=== PATIENT | female | born 1955 | race Caucasian/White ===

== ENCOUNTER → 2017-10-01 | Outpatient (REF) | payer OTHER, SELFPAY | LOC: LAB 11:37 | PROVIDERS: Family Provider Family Medicine | DX: Z13.1 Encounter for screening for diabetes mellitus (principal); Z13.220 Encounter for screening for lipoid disorders; Z71.89 Other specified counseling | CPT/HCPCS: 80061; 82947 ==

== ENCOUNTER → 2018-02-26 07:48 | Outpatient (CLI) | payer OTHER, SELFPAY ==
--- NOTE | 2018-02-26 | DI.MG.S_ITS ---
BILATERAL DIGITAL SCREENING MAMMOGRAM 3D/2D WITH CAD: 02/26/2018 CLINICAL: Routine screening. Comparison is made to exams dated: 01/11/2017 mammogram, 09/21/2015 mammogram - [facility], and 05/28/2013 mammogram - [facility]. There are scattered fibroglandular elements in both breasts. Current study was also evaluated with a Computer Aided Detection (CAD) system. There is an asymmetry in the right breast anterior depth central to the nipple seen on the mediolateral oblique view only with possible architectural distortion associated with the asymmetry. No other significant masses, calcifications, or other findings are seen in either breast. IMPRESSION: INCOMPLETE: NEEDS ADDITIONAL IMAGING EVALUATION The asymmetry with possible architectural distortion in the right breast is indeterminate. Additional views with possible ultrasound are recommended. This exam was interpreted at Station ID: [id number]. NOTE: For mammograms, a report in lay terms will be sent to the patient. Approximately 15% of breast malignancies will not be visualized mammographically. In the management of a palpable breast mass, a negative mammogram must not discourage biopsy of a clinically suspicious lesion. Electronically Signed By: Brian Honeycutt M.D. ecl/:02/27/2018 00:29:55 copy to: Ania Aranda letter sent: Additional Imaging Needed ACR BI-RADS Category 0: Incomplete [id number]
== END ==
PROVIDERS: Family Provider Family Medicine; Visit Provider Family Medicine
DX: Z12.31 Encounter for screening mammogram for malignant neoplasm of breast (principal)
CPT/HCPCS: 77063; 77067

== ENCOUNTER → 2018-03-20 13:59 | Outpatient (CLI) | payer OTHER, SELFPAY ==
--- NOTE | 2018-03-20 14:00 | DI.MG.S_ITS ---
UNILATERAL RIGHT DIGITAL DIAGNOSTIC MAMMOGRAM 3D/2D WITH ADDITIONAL VIEWS: 03/20/2018 CLINICAL: Additional evaluation requested from prior study. Comparison is made to exams dated: 02/26/2018 mammogram, 01/11/2017 mammogram, 09/21/2015 mammogram - [facility], and 05/28/2013 mammogram - [facility]. There are scattered fibroglandular elements in right breast. There is a benign irregular equal density asymmetry with an indistinct margin in the right breast anterior depth central to the nipple seen on the mediolateral oblique view only. This is not significantly changed compared to the prior studies dating back to 2012. No other significant masses or calcifications are seen in the breast. IMPRESSION: There is no mammographic evidence of malignancy. A 1 year screening mammogram is recommended.(03/21/2019) This exam was interpreted at Station ID: [id number]. NOTE: For mammograms, a report in lay terms will be sent to the patient. Approximately 15% of breast malignancies will not be visualized mammographically. In the management of a palpable breast mass, a negative mammogram must not discourage biopsy of a clinically suspicious lesion. Electronically Signed By: Tarik Ratliff M.D. ddjohn/:03/20/2018 14:40:09 copy to: Ania Aranda letter sent: Normal Exam ACR BI-RADS Category 2: Benign Finding(s) [id number]
== END ==
PROVIDERS: Family Provider Naturopath; PCP Family Medicine; Visit Provider Family Medicine
DX: R92.8 Other abnormal and inconclusive findings on diagnostic imaging of breast (principal)
CPT/HCPCS: 77065; G0279

== ENCOUNTER 2018-10-23 08:15 | Outpatient (RCR) | payer OTHER, SELFPAY ==
--- NOTE | 2018-08-20 17:30 | PT.OIE ---
Current Diagnoses Pain in left hip (08/20/18) Past Medical History (Last Updated 06/10/18 @ 15:05 by [place]) Ankle pain (Chronic 2016) Anxiety (Chronic 2007) Chronic headaches (Chronic 1989) Depression (Chronic 2007) Foot pain (Chronic 2012) GERD (gastroesophageal reflux disease) (Chronic 2006) Hayfever (Chronic 1989) Osteoarthritis (Chronic 2009) Osteopenia (Chronic 2016) Shoulder pain (Chronic 2004) Abnormal Pap smear of cervix (Resolved 2004) Colon polyps (Resolved 01/01/18) Fractures (Resolved 1974) History of heavy periods (Resolved 1969) Irregular periods/menstrual cycles (Resolved 1994) Measles (Resolved 1959) Mumps (Resolved 1959) Ovarian cyst (Resolved 1994) Plantar warts (Resolved 2009) Past Surgical History (Last Updated 06/10/18 @ 15:04 by [place]) Anesthesia (Resolved) History of colonoscopy with polypectomy (Resolved 01/01/18) History of ovarian cystectomy (Resolved 1994) History of tonsillectomy (Resolved 1974) Status post rotator cuff repair (Resolved 07/2016) Provider Visit Care Team Role Provider Type Bridgett Chaparro DO Family Provider Physician Primary Care Provider Specialty: Family Practice Address: [address] [place] [address] Email: [email or web address] [email or web address] Rodriguez Attending Provider Advanced Distance Learning Coordinator Specialty: Medical Address: [address] [place] [address] Email: Physical Therapy Initial Evaluation PT-OP-A Visit Information Start: 08/20/18 08:11 Freq: Status: Active Protocol: Document 08/20/18 08:57 EA (Rec: 08/20/18 09:56 EA [id number]) Out-Patient Physical Therapy Visit Information Visit Information Visit Type Initial Evaluation Visit Start Time 07:30 Visit Stop Time 08:10 Total Visit Minutes 40 Visit Number 1 Number of STRUCTURES TECHNICIAN Visits 0 Evaluation Information Evaluation Date 08/20/18 PT-OP-B Current Condition Start: 08/20/18 08:11 Freq: Status: Active Protocol: Document 08/20/18 08:57 EA (Rec: 08/20/18 09:56 EA [id number]) Current Condition History of Current Condition Onset Date Mid May 2018 Current Complaints gait difficulty due to localized left hip pain History of Current Condition Patient reports present condition started on mid- May with no known injury or significant past medical history; states it starts gradually from shifting of cycling exercises daily to walking 3 miles per day. Patient went to her physician due to decreasing mobility as pain tends to increased with increasing distance. Patient received pain meds and home stretch that helps a bit only. Patient denies any loss of function and abnormal sensation. Patient denies any diagnostic imaging performed in the past months. Prior Treatments and Tests None identified Future Testing and Treatments Planned None identified Treatment Goals Patient/Caregiver Goals Patient wants to eliminate pain completely so she can go back to her PLOF (active lifestyle) Prior Functional Status Baseline Function- ADL's Independent Baseline Function- Mobility Independent Baseline Function- Gait Indep with no limitation Baseline Function- Work/School retired Baseline Function- Recreation/Hobbies Cycling exercises 5 times per week or walking more than 2 miles daily. Current Functional Impairments (Reported) Functional Limitations- ADL's Independent Functional Limitations- Mobility/Gait Unable to walk more than a mile due to increasing pain Functional Limitations- Work/School retired Functional Limitations- Recreation/ Unable to perform cycling and Hobbies distance walking due to increasing pain with increasing distance. PT-OP-C Subjective Start: 08/20/18 08:11 Freq: Status: Active Protocol: Document 08/20/18 08:57 EA (Rec: 08/20/18 09:56 EA [id number]) OP-PT Subjective Patient Comments Patient Comments Patient reports she would like to get back to walking routine when the Weather permits. She states that left hip pain decreased her mobility; states pain increased more with increasing distance. Patient Questionnaires Lower Extremity Functional Scale LEFS Score 46 LEFS Impairment 40 to 59% Impaired (Score 32- 47) OP-PT Pain Assessment Pain Assessment Grid Paper Pain Assessment Grid Completed Yes Location Left Lateral Buttock Pain Location Details upper gluteals, hip ERotators, greater trochanter Intensity 5 Scale Used Numeric (1 - 10) Description Tender Tightness With Movement Frequency Intermittent Pain Aggravating Factors ADL's Activity Exercise Standing Walking Stair Climbing Pain Alleviating Factors Heat Rest Home Pain Medication Use Pain Medications Used No Pain Behaviors Pain Behaviors Wincing PT-OP-F Manual Assessment Start: 08/20/18 08:11 Freq: Status: Active Protocol: Document 08/20/18 08:57 EA (Rec: 08/20/18 09:56 EA [id number]) Manual Assessments Soft Tissue Assessment Soft Tissue Mobility Assessment Tight left hip ERotators Joint Mobility Assessment Joint Mobility Assessment Normal joint mob PT-OP-G Mobility & Gait Start: 08/20/18 08:11 Freq: Status: Active Protocol: Document 08/20/18 08:57 EA (Rec: 08/20/18 09:56 EA [id number]) OP Gait Assessment Gait Gait Assistance Required: Independent Able to Maintain Weight Bearing Status Yes During Gait Assistive Devices Assistive Device None Factors Limiting Gait Function Factors Limiting Gait Function Pain Comments Gait Comments Incresead left lateral pelvic displacement PT-OP-J Posture/Palpation/Skin Start: 08/20/18 08:11 Freq: Status: Active Protocol: Document 08/20/18 08:57 EA (Rec: 08/20/18 09:56 EA [id number]) Posture Evaluation Position Standing Evaluation View Post/Lat Head/C-Spine Posture Neutral Position T-Spine Posture Neutral Thorax Posture Neutral L-Spine Posture Neutral Shoulder Posture Neutral Pelvis Posture Neutral (L) Iliac Crest Inferior (L) ASIS Inferior Hip Posture (L) Externally Rotated Comments Posture Comments Left LE shorter than right by 2 cm Palpation Assessment Location One Palpation Location Left upper gluteal, hip Erotators, greater trochanter. Palpation Findings Soft Tissue Tightness Tenderness Palpation Details Grade 2/4 tenderness PT-OP-K Range of Motion Start: 08/20/18 08:11 Freq: Status: Active Protocol: Document 08/20/18 09:56 EA (Rec: 08/20/18 09:58 EA [id number]) Hip Goniometric Range of Motion Hip Measured in Degrees Right Hip ROM WFL Yes Left Active Flexion w/Knee Flexed 145 Extension 30 Abduction 45 Internal Rotation 15 External Rotation 30 Hip ROM Limitations Hip ROM Limitations Soft Tissue Tightness Pain Knee Goniometric Range of Motion Knee Measured in Degrees Left Knee ROM WFL Yes PT-OP-L Special Tests Start: 08/20/18 08:11 Freq: Status: Active Protocol: Document 08/20/18 08:57 EA (Rec: 08/20/18 09:56 EA [id number]) Special Tests Hip Special Tests Musa Test Results - Piriformis Test Results sensitive OUSMANE Test Results - Trendelenberg Test Results - Straight Leg Raise Test Results - Cate's Test Test Results - Knee Special Tests Nat's Test Test Results - PT-OP-M Strength Start: 08/20/18 08:11 Freq: Status: Active Protocol: Document 08/20/18 08:57 EA (Rec: 08/20/18 09:56 EA [id number]) Hip Strength Hip Manual Muscle Testing Left Flexion (L2) 5 Normal Extension (S1) 4+ Good+ Abduction 5 Normal Adduction 4+ Good+ External Rotation 4- Good- Internal Rotation 3+ Fair+ Knee Strength Knee Manual Muscle Testing Left Reason Not Measured WFL Ankle/Foot Strength Ankle and Foot Manual Muscle Testing Left Reason Not Measured WFL PT-OP-Q Treatments Start: 08/20/18 08:11 Freq: Status: Active Protocol: Document 08/20/18 08:57 EA (Rec: 08/20/18 09:56 EA [id number]) Therapeutic Exercises Sitting Exercises 2 Sitting Exercise Name Hip Irotation Resistance Lv1 Reps/Minutes x 12 reps Comments stabilize knee 1 Sitting Exercise Name HIP external rot Side left Resistance BTB/Lv1 Reps/Minutes x 12 reps Self-Care/Home Management Treatment Education Patient Education Home Exercise Program Joint Protection Pain Management Posture Caregiver Education Educated with home exercises and pain management PT-OP-T Assessment and Plan Start: 08/20/18 08:11 Freq: Status: Active Protocol: Document 08/20/18 08:11 EA (Rec: 08/20/18 08:14 EA [id number]) Physical Therapy Assessment Rehab Potential Rehabilitation Potential Good Evaluation Complexity Number of Personal Factors/Comorbidities 0 Number of Body Systems Impaired 1-2 Clinical Presentation at Evaluation Stable Impairments Impairments Gait Pain Posture Soft Tissue Mobility Strength Goals Four Impairment Impaired walking tolerance [facility] Goal (LTG) Patient willl ambulaet > 2 miles per day without increase of symptoms LTG Duration 4 wks Three Impairment No HEP in place [facility] Goal (LTG) Patient will exhibit independent HEP LTG Duration 3 wks Two Impairment Impaired left hip strength Motion Study Technician Goal (LTG) Patient will increase left hip rotators by 1/2 to 1 grade for functional mobility. LTG Duration 5 wks One Impairment LEFS score of 46/80 [facility] Goal (LTG) Patient will have LEFS score of > 55/80 LTG Duration 4 wks Assessment Summary Assessment Pleasant 62 y/o F patient with a referring diagnosis of left hip pain. Today patient exhibits signs and symptoms consistent with left hip abductors/gluteal tendinitis vs bursitis. Special tests sensitive to piriformis test, negative with scouring, FABERS, and SI joint test. Gait analysis reveals increase left pelvic lateral displacement. Postural analysis reveals left leg 2 cm shorter than right in supine and level in long sitting. MMT reveals weakness to hip ER/IR with pain overpressure during ER. Palpation reveals grade 2/ 4 tender over left greater troc and upper and lateral gluteal region. Due to above dysfunction, patient unable to perform activities that was normally okay 2 months ago. In my professional opinion, patient would benefit with skilled PT to increase patient 's quality of life. Physical Therapy Plan Frequency and Duration Frequency of Treatment 2x/Week Duration of Treatment 8 wks Plan of Care Start Date 08/20/18 Plan of Care End Date 10/15/18 Therapeutic Interventions Therapeutic Interventions Gait Training Home Exercise Program Joint Mobilizations Manual Therapy Patient/Caregiver Education Self-Care/Home Management Soft Tissue Mobilization Taping Therapeutic Exercises Modalities Cold Pack/Ice Massage Electric Stimulation Hot Packs Ultrasound Next Visit Focus/Plan Next Note Type Treatment Note Next Visit Plan Review HEP, decrease pain with the use of manual and modalities.
--- NOTE | 2018-08-20 17:30 | PT.OPPOC ---
Current Diagnoses Pain in left hip (08/20/18) Provider Visit Care Team Role Provider Type Bridgett Chaparro DO Family Provider Physician Primary Care Provider Specialty: Family Practice Address: [address] [place] [address], [id number] Email: [email or web address] YAMIL Rodriguez Attending Provider Advanced Client Services Administrator Specialty: Medical Address: [address] [place] [address], [id number] Email: Plan Of Care PT-OP-T Assessment and Plan Start: 08/20/18 08:11 Freq: Status: Active Protocol: Document 08/20/18 08:11 KATHERINE (Rec: 08/20/18 08:14 KATHERINE [id number]) Physical Therapy Assessment Rehab Potential Rehabilitation Potential Good Evaluation Complexity Number of Personal Factors/Comorbidities 0 Number of Body Systems Impaired 1-2 Clinical Presentation at Evaluation Stable Impairments Impairments Gait Pain Posture Soft Tissue Mobility Strength Goals Four Impairment Impaired walking tolerance Snf Goal (LTG) Patient willl ambulaet > 2 miles per day without increase of symptoms LTG Duration 4 wks Three Impairment No HEP in place [facility]roglazer Goal (LTG) Patient will exhibit independent HEP LTG Duration 3 wks Two Impairment Impaired left hip strength Snf Goal (LTG) Patient will increase left hip rotators by 1/2 to 1 grade for functional mobility. LTG Duration 5 wks One Impairment LEFS score of 46/80 Snf Goal (LTG) Patient will have LEFS score of > 55/80 LTG Duration 4 wks Assessment Summary Assessment Pleasant 62 y/o F patient with a referring diagnosis of left hip pain. Today patient exhibits signs and symptoms consistent with left hip abductors/gluteal tendinitis vs bursitis. Special tests sensitive to piriformis test, negative with scouring, FABERS, and SI joint test. Gait analysis reveals increase left pelvic lateral displacement. Postural analysis reveals left leg 2 cm shorter than right in supine and level in long sitting. MMT reveals weakness to hip ER/IR with pain overpressure during ER. Palpation reveals grade 2/ 4 tender over left greater troc and upper and lateral gluteal region. Due to above dysfunction, patient unable to perform activities that was normally okay 2 months ago. In my professional opinion, patient would benefit with skilled PT to increase patient 's quality of life. Physical Therapy Plan Frequency and Duration Frequency of Treatment 2x/Week Duration of Treatment 8 wks Plan of Care Start Date 08/20/18 Plan of Care End Date 10/15/18 Therapeutic Interventions Therapeutic Interventions Gait Training Home Exercise Program Joint Mobilizations Manual Therapy Patient/Caregiver Education Self-Care/Home Management Soft Tissue Mobilization Taping Therapeutic Exercises Modalities Cold Pack/Ice Massage Electric Stimulation Hot Packs Ultrasound Next Visit Focus/Plan Next Note Type Treatment Note Next Visit Plan Review HEP, decrease pain with the use of manual and modalities. Plan of Care Dates Plan of Care Start Date 08/20/18 Plan of Care End Date 10/15/18 Please Sign and Return: I have reviewed this Plan of Care and certify that the skilled therapy services above are required to meet the patient?s needs. Physician Signature Date Printed Name and Credentials Clinical Instructor Signature Printed Name and Credentials
--- NOTE | 2018-08-25 13:31 | PT.OTN ---
Current Diagnoses Pain in left hip (08/25/18) Physical Therapy Treatment Note PT-OP-A Visit Information Start: 08/20/18 08:11 Freq: Status: Active Protocol: Document 08/25/18 12:47 EA (Rec: 08/25/18 12:56 EA [id number]) Out-Patient Physical Therapy Visit Information Visit Information Visit Type Treatment Note Visit Start Time 12:15 Visit Stop Time 13:02 Total Visit Minutes 47 Visit Number 2 Number of MACHINE II TRIMMER Visits 0 PT-OP-B Current Condition Start: 08/20/18 08:11 Freq: Status: Active Protocol: Document 08/20/18 08:57 EA (Rec: 08/20/18 09:56 EA [id number]) Current Condition History of Current Condition Onset Date Mid May 2018 Current Complaints gait difficulty due to localized left hip pain History of Current Condition Patient reports present condition started on mid- May with no known injury or significant past medical history; states it starts gradually from shifting of cycling exercises daily to walking 3 miles per day. Patient went to her physician due to decreasing mobility as pain tends to increased with increasing distance. Patient received pain meds and home stretch that helps a bit only. Patient denies any loss of function and abnormal sensation. Patient denies any diagnostic imaging performed in the past months. Prior Treatments and Tests None identified Future Testing and Treatments Planned None identified Treatment Goals Patient/Caregiver Goals Patient wants to eliminate pain completely so she can go back to her PLOF (active lifestyle) Prior Functional Status Baseline Function- ADL's Independent Baseline Function- Mobility Independent Baseline Function- Gait Indep with no limitation Baseline Function- Work/School retired Baseline Function- Recreation/Hobbies Cycling exercises 5 times per week or walking more than 2 miles daily. Current Functional Impairments (Reported) Functional Limitations- ADL's Independent Functional Limitations- Mobility/Gait Unable to walk more than a mile due to increasing pain Functional Limitations- Work/School retired Functional Limitations- Recreation/ Unable to perform cycling and Hobbies distance walking due to increasing pain with increasing distance. PT-OP-C Subjective Start: 08/20/18 08:11 Freq: Status: Active Protocol: Document 08/25/18 12:47 EA (Rec: 08/25/18 12:56 EA [id number]) OP-PT Subjective Patient Comments Patient Comments Pt reports compliant with HEP and has been using heat and tennis ball to affected area. Patient Reported Progress Improving PT-OP-F Manual Assessment Start: 08/20/18 08:11 Freq: Status: Active Protocol: Document 08/20/18 08:57 EA (Rec: 08/20/18 09:56 EA [id number]) Manual Assessments Soft Tissue Assessment Soft Tissue Mobility Assessment Tight left hip ERotators Joint Mobility Assessment Joint Mobility Assessment Normal joint mob PT-OP-G Mobility & Gait Start: 08/20/18 08:11 Freq: Status: Active Protocol: Document 08/20/18 08:57 EA (Rec: 08/20/18 09:56 EA [id number]) OP Gait Assessment Gait Gait Assistance Required: Independent Able to Maintain Weight Bearing Status Yes During Gait Assistive Devices Assistive Device None Factors Limiting Gait Function Factors Limiting Gait Function Pain Comments Gait Comments Incresead left lateral pelvic displacement PT-OP-J Posture/Palpation/Skin Start: 08/20/18 08:11 Freq: Status: Active Protocol: Document 08/20/18 08:57 EA (Rec: 08/20/18 09:56 EA [id number]) Posture Evaluation Position Standing Evaluation View Post/Lat Head/C-Spine Posture Neutral Position T-Spine Posture Neutral Thorax Posture Neutral L-Spine Posture Neutral Shoulder Posture Neutral Pelvis Posture Neutral (L) Iliac Crest Inferior (L) ASIS Inferior Hip Posture (L) Externally Rotated Comments Posture Comments Left LE shorter than right by 2 cm Palpation Assessment Location One Palpation Location Left upper gluteal, hip Erotators, greater trochanter. Palpation Findings Soft Tissue Tightness Tenderness Palpation Details Grade 2/4 tenderness PT-OP-K Range of Motion Start: 08/20/18 08:11 Freq: Status: Active Protocol: Document 08/20/18 09:56 EA (Rec: 08/20/18 09:58 EA [id number]) Hip Goniometric Range of Motion Hip Measured in Degrees Right Hip ROM WFL Yes Left Active Flexion w/Knee Flexed 145 Extension 30 Abduction 45 Internal Rotation 15 External Rotation 30 Hip ROM Limitations Hip ROM Limitations Soft Tissue Tightness Pain Knee Goniometric Range of Motion Knee Measured in Degrees Left Knee ROM WFL Yes PT-OP-L Special Tests Start: 08/20/18 08:11 Freq: Status: Active Protocol: Document 08/20/18 08:57 EA (Rec: 08/20/18 09:56 EA [id number]) Special Tests Hip Special Tests Musa Test Results - Piriformis Test Results sensitive OUSMANE Test Results - Trendelenberg Test Results - Straight Leg Raise Test Results - Cate's Test Test Results - Knee Special Tests Nat's Test Test Results - PT-OP-M Strength Start: 08/20/18 08:11 Freq: Status: Active Protocol: Document 08/20/18 08:57 EA (Rec: 08/20/18 09:56 EA [id number]) Hip Strength Hip Manual Muscle Testing Left Flexion (L2) 5 Normal Extension (S1) 4+ Good+ Abduction 5 Normal Adduction 4+ Good+ External Rotation 4- Good- Internal Rotation 3+ Fair+ Knee Strength Knee Manual Muscle Testing Left Reason Not Measured WFL Ankle/Foot Strength Ankle and Foot Manual Muscle Testing Left Reason Not Measured WFL PT-OP-Q Treatments Start: 08/20/18 08:11 Freq: Status: Active Protocol: Document 08/25/18 12:47 EA (Rec: 08/25/18 12:56 EA [id number]) Cardio Equipment Recumbent Bicycle Duration (Minutes) 5 Resistance 6 Therapeutic Exercises Supine Exercises 1 Supine Exercise Name Figure of 4 stretch Reps/Minutes x 15SH x 2 Sitting Exercises 3 Sitting Exercise Name Piriformis stretch/cross leg stretch Reps/Minutes x 30SH x 2 2 Sitting Exercise Name Hip Irotation Resistance Lv1 Reps/Minutes x 12 reps x 2 Comments stabilize knee 1 Sitting Exercise Name HIP external rot Side left Resistance BTB/Lv1 Reps/Minutes x 12 reps x 2 Manual Therapy Treatment Soft Tissue Mobilization 1 Body Location Left upper/lower gluteals Mobilization Type Myofascial Release Sustained Pressure Trigger Point Release Intensity/Depth Moderate Body Position Sidelying Comments pillow inbet knees PT-OP-R Modalities Start: 08/20/18 08:11 Freq: Status: Active Protocol: Document 08/25/18 12:47 EA (Rec: 08/25/18 12:56 EA [id number]) Electric Stimulation Electric Stimulation Interferential Current (IFC) Body Location left gluteals/ ERotators Duration (Minutes) 15 Intensity 17 Patient Position Sidelying Combined With Heat/Cold Hot Pack PT-OP-T Assessment and Plan Start: 08/20/18 08:11 Freq: Status: Active Protocol: Document 08/25/18 12:47 EA (Rec: 08/25/18 12:56 EA [id number]) Physical Therapy Assessment Assessment Summary Assessment Tolerated treatment well. Tender spots still noted but decreased after manual PT. Physical Therapy Plan Next Visit Focus/Plan Next Note Type Treatment Note Next Visit Plan assess response to last treatment., otherwise progress as tolerated.
--- NOTE | 2018-09-01 09:31 | PT.OTN ---
Current Diagnoses Pain in left hip (08/25/18) Physical Therapy Treatment Note PT-OP-A Visit Information Start: 08/20/18 08:11 Freq: Status: Active Protocol: Document 09/01/18 08:56 EA (Rec: 09/01/18 09:01 EA [id number]) Out-Patient Physical Therapy Visit Information Visit Information Visit Type Treatment Note Visit Start Time 08:15 Visit Stop Time 09:00 Total Visit Minutes 53 Visit Number 3 Number of FIBER GLASS WORKER Visits 0 PT-OP-B Current Condition Start: 08/20/18 08:11 Freq: Status: Active Protocol: Document 08/20/18 08:57 EA (Rec: 08/20/18 09:56 EA [id number]) Current Condition History of Current Condition Onset Date Mid May 2018 Current Complaints gait difficulty due to localized left hip pain History of Current Condition Patient reports present condition started on mid- May with no known injury or significant past medical history; states it starts gradually from shifting of cycling exercises daily to walking 3 miles per day. Patient went to her physician due to decreasing mobility as pain tends to increased with increasing distance. Patient received pain meds and home stretch that helps a bit only. Patient denies any loss of function and abnormal sensation. Patient denies any diagnostic imaging performed in the past months. Prior Treatments and Tests None identified Future Testing and Treatments Planned None identified Treatment Goals Patient/Caregiver Goals Patient wants to eliminate pain completely so she can go back to her PLOF (active lifestyle) Prior Functional Status Baseline Function- ADL's Independent Baseline Function- Mobility Independent Baseline Function- Gait Indep with no limitation Baseline Function- Work/School retired Baseline Function- Recreation/Hobbies Cycling exercises 5 times per week or walking more than 2 miles daily. Current Functional Impairments (Reported) Functional Limitations- ADL's Independent Functional Limitations- Mobility/Gait Unable to walk more than a mile due to increasing pain Functional Limitations- Work/School retired Functional Limitations- Recreation/ Unable to perform cycling and Hobbies distance walking due to increasing pain with increasing distance. PT-OP-C Subjective Start: 08/20/18 08:11 Freq: Status: Active Protocol: Document 09/01/18 08:56 EA (Rec: 09/01/18 09:01 EA [id number]) OP-PT Subjective Patient Comments Patient Comments I feel my hip is feeling much better, states aching mostly happens when sleeping at night. PT-OP-F Manual Assessment Start: 08/20/18 08:11 Freq: Status: Active Protocol: Document 08/20/18 08:57 EA (Rec: 08/20/18 09:56 EA [id number]) Manual Assessments Soft Tissue Assessment Soft Tissue Mobility Assessment Tight left hip ERotators Joint Mobility Assessment Joint Mobility Assessment Normal joint mob PT-OP-G Mobility & Gait Start: 08/20/18 08:11 Freq: Status: Active Protocol: Document 08/20/18 08:57 EA (Rec: 08/20/18 09:56 EA [id number]) OP Gait Assessment Gait Gait Assistance Required: Independent Able to Maintain Weight Bearing Status Yes During Gait Assistive Devices Assistive Device None Factors Limiting Gait Function Factors Limiting Gait Function Pain Comments Gait Comments Incresead left lateral pelvic displacement PT-OP-J Posture/Palpation/Skin Start: 08/20/18 08:11 Freq: Status: Active Protocol: Document 08/20/18 08:57 EA (Rec: 08/20/18 09:56 EA [id number]) Posture Evaluation Position Standing Evaluation View Post/Lat Head/C-Spine Posture Neutral Position T-Spine Posture Neutral Thorax Posture Neutral L-Spine Posture Neutral Shoulder Posture Neutral Pelvis Posture Neutral (L) Iliac Crest Inferior (L) ASIS Inferior Hip Posture (L) Externally Rotated Comments Posture Comments Left LE shorter than right by 2 cm Palpation Assessment Location One Palpation Location Left upper gluteal, hip Erotators, greater trochanter. Palpation Findings Soft Tissue Tightness Tenderness Palpation Details Grade 2/4 tenderness PT-OP-K Range of Motion Start: 08/20/18 08:11 Freq: Status: Active Protocol: Document 08/20/18 09:56 EA (Rec: 08/20/18 09:58 EA [id number]) Hip Goniometric Range of Motion Hip Measured in Degrees Right Hip ROM WFL Yes Left Active Flexion w/Knee Flexed 145 Extension 30 Abduction 45 Internal Rotation 15 External Rotation 30 Hip ROM Limitations Hip ROM Limitations Soft Tissue Tightness Pain Knee Goniometric Range of Motion Knee Measured in Degrees Left Knee ROM WFL Yes PT-OP-L Special Tests Start: 08/20/18 08:11 Freq: Status: Active Protocol: Document 08/20/18 08:57 EA (Rec: 08/20/18 09:56 EA [id number]) Special Tests Hip Special Tests Musa Test Results - Piriformis Test Results sensitive OUSMANE Test Results - Trendelenberg Test Results - Straight Leg Raise Test Results - Cate's Test Test Results - Knee Special Tests Nat's Test Test Results - PT-OP-M Strength Start: 08/20/18 08:11 Freq: Status: Active Protocol: Document 08/20/18 08:57 EA (Rec: 08/20/18 09:56 EA [id number]) Hip Strength Hip Manual Muscle Testing Left Flexion (L2) 5 Normal Extension (S1) 4+ Good+ Abduction 5 Normal Adduction 4+ Good+ External Rotation 4- Good- Internal Rotation 3+ Fair+ Knee Strength Knee Manual Muscle Testing Left Reason Not Measured WFL Ankle/Foot Strength Ankle and Foot Manual Muscle Testing Left Reason Not Measured WFL PT-OP-Q Treatments Start: 08/20/18 08:11 Freq: Status: Active Protocol: Document 09/01/18 08:56 EA (Rec: 09/01/18 09:01 EA [id number]) Cardio Equipment Recumbent Stepper (Sci-Fit) Duration (Minutes) 7 Resistance 2 Therapeutic Exercises Supine Exercises 2 Supine Exercise Name Bridge Resistance YTB Reps/Minutes x 10 reps 1 Supine Exercise Name Figure of 4 stretch Reps/Minutes x 15SH x 2 Sitting Exercises 3 Sitting Exercise Name Piriformis stretch/cross leg stretch Reps/Minutes x 30SH x 2 2 Sitting Exercise Name Hip Irotation Resistance Lv1 Reps/Minutes x 12 reps x 2 Comments stabilize knee 1 Sitting Exercise Name HIP external rot Side left Resistance BTB/Lv1 Reps/Minutes x 12 reps x 2 Standing Exercises 2 Standing Exercise Name side step Resistance YTB Reps/Minutes x 12 feet x 4 lines 1 Standing Exercise Name Squat: ABDUctors activitation Reps/Minutes x 12 reps Manual Therapy Treatment Soft Tissue Mobilization 1 Body Location Left upper/lower gluteals Mobilization Type Myofascial Release Sustained Pressure Trigger Point Release Intensity/Depth Moderate Body Position Sidelying Comments pillow inbet knees PT-OP-R Modalities Start: 08/20/18 08:11 Freq: Status: Active Protocol: Document 09/01/18 08:56 EA (Rec: 09/01/18 09:01 EA [id number]) Electric Stimulation Electric Stimulation Interferential Current (IFC) Body Location left gluteals/ ERotators Duration (Minutes) 15 Intensity 17 Patient Position Sidelying Combined With Heat/Cold Hot Pack Ultrasound Therapy Treatment Left Hip Treatment Duration (minutes) 8 Patient Position Sidelying Frequency Setting (mHz) 1 Mode Setting Continuous Intensity Setting (w/cm2) 1.4 PT-OP-T Assessment and Plan Start: 08/20/18 08:11 Freq: Status: Active Protocol: Document 09/01/18 08:56 EA (Rec: 09/01/18 09:01 EA [id number]) Physical Therapy Assessment Assessment Summary Assessment Pt tolerated treatment with no discomfort during exercises noted. Physical Therapy Plan Next Visit Focus/Plan Next Note Type Treatment Note Next Visit Plan Cont. with current plan
--- NOTE | 2018-09-15 09:49 | PT.OTN ---
Current Diagnoses Pain in left hip (09/15/18) Physical Therapy Treatment Note PT-OP-A Visit Information Start: 08/20/18 08:11 Freq: Status: Active Protocol: Document 09/15/18 08:53 EA (Rec: 09/15/18 08:58 EA [id number]) Out-Patient Physical Therapy Visit Information Visit Information Visit Type Treatment Note Visit Start Time 08:15 Visit Stop Time 09:08 Total Visit Minutes 53 Visit Number 4 Number of BILL SORTER Visits 0 PT-OP-B Current Condition Start: 08/20/18 08:11 Freq: Status: Active Protocol: Document 08/20/18 08:57 EA (Rec: 08/20/18 09:56 EA [id number]) Current Condition History of Current Condition Onset Date Mid May 2018 Current Complaints gait difficulty due to localized left hip pain History of Current Condition Patient reports present condition started on mid- May with no known injury or significant past medical history; states it starts gradually from shifting of cycling exercises daily to walking 3 miles per day. Patient went to her physician due to decreasing mobility as pain tends to increased with increasing distance. Patient received pain meds and home stretch that helps a bit only. Patient denies any loss of function and abnormal sensation. Patient denies any diagnostic imaging performed in the past months. Prior Treatments and Tests None identified Future Testing and Treatments Planned None identified Treatment Goals Patient/Caregiver Goals Patient wants to eliminate pain completely so she can go back to her PLOF (active lifestyle) Prior Functional Status Baseline Function- ADL's Independent Baseline Function- Mobility Independent Baseline Function- Gait Indep with no limitation Baseline Function- Work/School retired Baseline Function- Recreation/Hobbies Cycling exercises 5 times per week or walking more than 2 miles daily. Current Functional Impairments (Reported) Functional Limitations- ADL's Independent Functional Limitations- Mobility/Gait Unable to walk more than a mile due to increasing pain Functional Limitations- Work/School retired Functional Limitations- Recreation/ Unable to perform cycling and Hobbies distance walking due to increasing pain with increasing distance. PT-OP-C Subjective Start: 08/20/18 08:11 Freq: Status: Active Protocol: Document 09/15/18 08:53 EA (Rec: 09/15/18 08:58 EA [id number]) OP-PT Subjective Patient Comments Patient Comments Pt reports she had a flu last week and had to cancelled last session; states left hip is improving but chio orellanapy her awake at time in the evening. PT-OP-F Manual Assessment Start: 08/20/18 08:11 Freq: Status: Active Protocol: Document 08/20/18 08:57 EA (Rec: 08/20/18 09:56 EA [id number]) Manual Assessments Soft Tissue Assessment Soft Tissue Mobility Assessment Tight left hip ERotators Joint Mobility Assessment Joint Mobility Assessment Normal joint mob PT-OP-G Mobility & Gait Start: 08/20/18 08:11 Freq: Status: Active Protocol: Document 08/20/18 08:57 EA (Rec: 08/20/18 09:56 EA [id number]) OP Gait Assessment Gait Gait Assistance Required: Independent Able to Maintain Weight Bearing Status Yes During Gait Assistive Devices Assistive Device None Factors Limiting Gait Function Factors Limiting Gait Function Pain Comments Gait Comments Incresead left lateral pelvic displacement PT-OP-J Posture/Palpation/Skin Start: 08/20/18 08:11 Freq: Status: Active Protocol: Document 08/20/18 08:57 EA (Rec: 08/20/18 09:56 EA [id number]) Posture Evaluation Position Standing Evaluation View Post/Lat Head/C-Spine Posture Neutral Position T-Spine Posture Neutral Thorax Posture Neutral L-Spine Posture Neutral Shoulder Posture Neutral Pelvis Posture Neutral (L) Iliac Crest Inferior (L) ASIS Inferior Hip Posture (L) Externally Rotated Comments Posture Comments Left LE shorter than right by 2 cm Palpation Assessment Location One Palpation Location Left upper gluteal, hip Erotators, greater trochanter. Palpation Findings Soft Tissue Tightness Tenderness Palpation Details Grade 2/4 tenderness PT-OP-K Range of Motion Start: 08/20/18 08:11 Freq: Status: Active Protocol: Document 08/20/18 09:56 EA (Rec: 08/20/18 09:58 EA [id number]) Hip Goniometric Range of Motion Hip Measured in Degrees Right Hip ROM WFL Yes Left Active Flexion w/Knee Flexed 145 Extension 30 Abduction 45 Internal Rotation 15 External Rotation 30 Hip ROM Limitations Hip ROM Limitations Soft Tissue Tightness Pain Knee Goniometric Range of Motion Knee Measured in Degrees Left Knee ROM WFL Yes PT-OP-L Special Tests Start: 08/20/18 08:11 Freq: Status: Active Protocol: Document 08/20/18 08:57 EA (Rec: 08/20/18 09:56 EA [id number]) Special Tests Hip Special Tests Musa Test Results - Piriformis Test Results sensitive OUSMANE Test Results - Trendelenberg Test Results - Straight Leg Raise Test Results - Cate's Test Test Results - Knee Special Tests Nat's Test Test Results - PT-OP-M Strength Start: 08/20/18 08:11 Freq: Status: Active Protocol: Document 08/20/18 08:57 EA (Rec: 08/20/18 09:56 EA [id number]) Hip Strength Hip Manual Muscle Testing Left Flexion (L2) 5 Normal Extension (S1) 4+ Good+ Abduction 5 Normal Adduction 4+ Good+ External Rotation 4- Good- Internal Rotation 3+ Fair+ Knee Strength Knee Manual Muscle Testing Left Reason Not Measured WFL Ankle/Foot Strength Ankle and Foot Manual Muscle Testing Left Reason Not Measured WFL PT-OP-Q Treatments Start: 08/20/18 08:11 Freq: Status: Active Protocol: Document 09/15/18 08:53 EA (Rec: 09/15/18 08:58 EA [id number]) Cardio Equipment Recumbent Stepper (Sci-Fit) Duration (Minutes) 7 Resistance 2 Therapeutic Exercises Supine Exercises 2 Supine Exercise Name Bridge w/ hip bilate abd Resistance BTB Reps/Minutes x 10 reps x 2 sets 1 Supine Exercise Name Figure of 4 stretch Reps/Minutes x 15SH x 2 Sitting Exercises 3 Sitting Exercise Name Piriformis stretch/cross leg stretch Reps/Minutes x 30SH x 2 2 Sitting Exercise Name Hip Irotation Resistance Lv1 Reps/Minutes x 12 reps x 2 Comments stabilize knee 1 Sitting Exercise Name HIP external rot Side left Resistance BTB/Lv1 Reps/Minutes x 12 reps x 2 Standing Exercises 2 Standing Exercise Name side step Resistance BTB Reps/Minutes x 12 feet x 4 lines 1 Standing Exercise Name Squat: ABDUctors activitation Reps/Minutes x 12 reps x 2 Manual Therapy Treatment Soft Tissue Mobilization 1 Body Location Left upper/lower gluteals Mobilization Type Myofascial Release Sustained Pressure Trigger Point Release Intensity/Depth Moderate Body Position Sidelying Comments pillow inbet knees PT-OP-R Modalities Start: 08/20/18 08:11 Freq: Status: Active Protocol: Document 09/15/18 08:53 EA (Rec: 09/15/18 08:58 EA [id number]) Electric Stimulation Electric Stimulation Interferential Current (IFC) Body Location left gluteals/ ERotators Duration (Minutes) 15 Intensity 17 Patient Position Sidelying Combined With Heat/Cold Hot Pack PT-OP-T Assessment and Plan Start: 08/20/18 08:11 Freq: Status: Active Protocol: Document 09/15/18 08:53 EA (Rec: 09/15/18 08:58 EA [id number]) Physical Therapy Assessment Assessment Summary Assessment Pt left hip is improving at this time. No discomfort noted during therex. Continue with current plan or progress as tolerated. Physical Therapy Plan Next Visit Focus/Plan Next Note Type Treatment Note Next Visit Plan Cont. with current plan. Progress as tolerated.
--- NOTE | 2018-09-17 09:49 | PT.OTN ---
Current Diagnoses Pain in left hip (09/17/18) Physical Therapy Treatment Note PT-OP-A Visit Information Start: 08/20/18 08:11 Freq: Status: Active Protocol: Document 09/17/18 09:04 EA (Rec: 09/17/18 09:07 EA [id number]) Out-Patient Physical Therapy Visit Information Visit Information Visit Type Treatment Note Visit Start Time 08:15 Visit Stop Time 09:08 Total Visit Minutes 53 Visit Number 5 Number of BIAS CUTTING MACHINE OPERATOR VERTICAL Visits 0 PT-OP-B Current Condition Start: 08/20/18 08:11 Freq: Status: Active Protocol: Document 08/20/18 08:57 EA (Rec: 08/20/18 09:56 EA [id number]) Current Condition History of Current Condition Onset Date Mid May 2018 Current Complaints gait difficulty due to localized left hip pain History of Current Condition Patient reports present condition started on mid- May with no known injury or significant past medical history; states it starts gradually from shifting of cycling exercises daily to walking 3 miles per day. Patient went to her physician due to decreasing mobility as pain tends to increased with increasing distance. Patient received pain meds and home stretch that helps a bit only. Patient denies any loss of function and abnormal sensation. Patient denies any diagnostic imaging performed in the past months. Prior Treatments and Tests None identified Future Testing and Treatments Planned None identified Treatment Goals Patient/Caregiver Goals Patient wants to eliminate pain completely so she can go back to her PLOF (active lifestyle) Prior Functional Status Baseline Function- ADL's Independent Baseline Function- Mobility Independent Baseline Function- Gait Indep with no limitation Baseline Function- Work/School retired Baseline Function- Recreation/Hobbies Cycling exercises 5 times per week or walking more than 2 miles daily. Current Functional Impairments (Reported) Functional Limitations- ADL's Independent Functional Limitations- Mobility/Gait Unable to walk more than a mile due to increasing pain Functional Limitations- Work/School retired Functional Limitations- Recreation/ Unable to perform cycling and Hobbies distance walking due to increasing pain with increasing distance. PT-OP-C Subjective Start: 08/20/18 08:11 Freq: Status: Active Protocol: Document 09/17/18 09:04 EA (Rec: 09/17/18 09:07 EA [id number]) OP-PT Subjective Patient Comments Patient Comments Pt reports left hip is improving well. PT-OP-F Manual Assessment Start: 08/20/18 08:11 Freq: Status: Active Protocol: Document 08/20/18 08:57 EA (Rec: 08/20/18 09:56 EA [id number]) Manual Assessments Soft Tissue Assessment Soft Tissue Mobility Assessment Tight left hip ERotators Joint Mobility Assessment Joint Mobility Assessment Normal joint mob PT-OP-G Mobility & Gait Start: 08/20/18 08:11 Freq: Status: Active Protocol: Document 08/20/18 08:57 EA (Rec: 08/20/18 09:56 EA [id number]) OP Gait Assessment Gait Gait Assistance Required: Independent Able to Maintain Weight Bearing Status Yes During Gait Assistive Devices Assistive Device None Factors Limiting Gait Function Factors Limiting Gait Function Pain Comments Gait Comments Incresead left lateral pelvic displacement PT-OP-J Posture/Palpation/Skin Start: 08/20/18 08:11 Freq: Status: Active Protocol: Document 08/20/18 08:57 EA (Rec: 08/20/18 09:56 EA [id number]) Posture Evaluation Position Standing Evaluation View Post/Lat Head/C-Spine Posture Neutral Position T-Spine Posture Neutral Thorax Posture Neutral L-Spine Posture Neutral Shoulder Posture Neutral Pelvis Posture Neutral (L) Iliac Crest Inferior (L) ASIS Inferior Hip Posture (L) Externally Rotated Comments Posture Comments Left LE shorter than right by 2 cm Palpation Assessment Location One Palpation Location Left upper gluteal, hip Erotators, greater trochanter. Palpation Findings Soft Tissue Tightness Tenderness Palpation Details Grade 2/4 tenderness PT-OP-K Range of Motion Start: 08/20/18 08:11 Freq: Status: Active Protocol: Document 08/20/18 09:56 EA (Rec: 08/20/18 09:58 EA [id number]) Hip Goniometric Range of Motion Hip Measured in Degrees Right Hip ROM WFL Yes Left Active Flexion w/Knee Flexed 145 Extension 30 Abduction 45 Internal Rotation 15 External Rotation 30 Hip ROM Limitations Hip ROM Limitations Soft Tissue Tightness Pain Knee Goniometric Range of Motion Knee Measured in Degrees Left Knee ROM WFL Yes PT-OP-L Special Tests Start: 08/20/18 08:11 Freq: Status: Active Protocol: Document 08/20/18 08:57 EA (Rec: 08/20/18 09:56 EA [id number]) Special Tests Hip Special Tests Musa Test Results - Piriformis Test Results sensitive OUSMANE Test Results - Trendelenberg Test Results - Straight Leg Raise Test Results - Cate's Test Test Results - Knee Special Tests Nat's Test Test Results - PT-OP-M Strength Start: 08/20/18 08:11 Freq: Status: Active Protocol: Document 08/20/18 08:57 EA (Rec: 08/20/18 09:56 EA [id number]) Hip Strength Hip Manual Muscle Testing Left Flexion (L2) 5 Normal Extension (S1) 4+ Good+ Abduction 5 Normal Adduction 4+ Good+ External Rotation 4- Good- Internal Rotation 3+ Fair+ Knee Strength Knee Manual Muscle Testing Left Reason Not Measured WFL Ankle/Foot Strength Ankle and Foot Manual Muscle Testing Left Reason Not Measured WFL PT-OP-Q Treatments Start: 08/20/18 08:11 Freq: Status: Active Protocol: Document 09/17/18 09:04 EA (Rec: 09/17/18 09:07 EA [id number]) Cardio Equipment Recumbent Stepper (Sci-Fit) Duration (Minutes) 7 Resistance 2 Gym Equipment Shuttle Recovery Bilateral Squats Resistance 3 cords Reps/Time 15 reps x 2 Therapeutic Exercises Supine Exercises 2 Supine Exercise Name Bridge w/ hip bilate abd Resistance BTB Reps/Minutes x 10 reps x 2 sets 1 Supine Exercise Name Figure of 4 stretch Reps/Minutes x 15SH x 2 Sitting Exercises 3 Sitting Exercise Name Piriformis stretch/cross leg stretch Reps/Minutes x 30SH x 2 2 Sitting Exercise Name Hip Irotation Resistance Lv1 Reps/Minutes x 12 reps x 2 Comments stabilize knee 1 Sitting Exercise Name HIP external rot Side left Resistance BTB/Lv1 Reps/Minutes x 12 reps x 2 Standing Exercises 2 Standing Exercise Name side step Resistance GTB Reps/Minutes x 12 feet x 4 lines 1 Standing Exercise Name Squat: ABDUctors activitation Reps/Minutes x 12 reps x 2 Manual Therapy Treatment Soft Tissue Mobilization 1 Body Location Left upper/lower gluteals Mobilization Type Myofascial Release Sustained Pressure Trigger Point Release Intensity/Depth Moderate Body Position Sidelying Comments pillow inbet knees PT-OP-R Modalities Start: 08/20/18 08:11 Freq: Status: Active Protocol: Document 09/17/18 09:04 EA (Rec: 09/17/18 09:07 EA [id number]) Electric Stimulation Electric Stimulation Interferential Current (IFC) Body Location left gluteals/ ERotators Duration (Minutes) 15 Intensity 17 Patient Position Sidelying Combined With Heat/Cold Hot Pack PT-OP-T Assessment and Plan Start: 08/20/18 08:11 Freq: Status: Active Protocol: Document 09/17/18 09:04 EA (Rec: 09/17/18 09:07 EA [id number]) Physical Therapy Assessment Assessment Summary Assessment Pt show god improvement as to mobility and symptoms; decrease session to once a week as able. Physical Therapy Plan Next Visit Focus/Plan Next Note Type Treatment Note Next Visit Plan Cont. with current plan. Progress as tolerated.
--- NOTE | 2018-09-22 11:07 | PT.OTN ---
Current Diagnoses Pain in left hip (09/22/18) Physical Therapy Treatment Note PT-OP-A Visit Information Start: 08/20/18 08:11 Freq: Status: Active Protocol: Document 09/22/18 09:01 EA (Rec: 09/22/18 09:06 EA [id number]) Out-Patient Physical Therapy Visit Information Visit Information Visit Type Treatment Note Visit Start Time 08:15 Visit Stop Time 09:09 Total Visit Minutes 4 Visit Number 6 Number of PLATE WORKER HELPER Visits 0 PT-OP-B Current Condition Start: 08/20/18 08:11 Freq: Status: Active Protocol: Document 08/20/18 08:57 EA (Rec: 08/20/18 09:56 EA [id number]) Current Condition History of Current Condition Onset Date Mid May 2018 Current Complaints gait difficulty due to localized left hip pain History of Current Condition Patient reports present condition started on mid- May with no known injury or significant past medical history; states it starts gradually from shifting of cycling exercises daily to walking 3 miles per day. Patient went to her physician due to decreasing mobility as pain tends to increased with increasing distance. Patient received pain meds and home stretch that helps a bit only. Patient denies any loss of function and abnormal sensation. Patient denies any diagnostic imaging performed in the past months. Prior Treatments and Tests None identified Future Testing and Treatments Planned None identified Treatment Goals Patient/Caregiver Goals Patient wants to eliminate pain completely so she can go back to her PLOF (active lifestyle) Prior Functional Status Baseline Function- ADL's Independent Baseline Function- Mobility Independent Baseline Function- Gait Indep with no limitation Baseline Function- Work/School retired Baseline Function- Recreation/Hobbies Cycling exercises 5 times per week or walking more than 2 miles daily. Current Functional Impairments (Reported) Functional Limitations- ADL's Independent Functional Limitations- Mobility/Gait Unable to walk more than a mile due to increasing pain Functional Limitations- Work/School retired Functional Limitations- Recreation/ Unable to perform cycling and Hobbies distance walking due to increasing pain with increasing distance. PT-OP-C Subjective Start: 08/20/18 08:11 Freq: Status: Active Protocol: Document 09/22/18 09:01 EA (Rec: 09/22/18 09:06 EA [id number]) OP-PT Subjective Patient Comments Patient Comments Pt reports left hip is quites sore today but improving as to functional activities. PT-OP-F Manual Assessment Start: 08/20/18 08:11 Freq: Status: Active Protocol: Document 08/20/18 08:57 EA (Rec: 08/20/18 09:56 EA [id number]) Manual Assessments Soft Tissue Assessment Soft Tissue Mobility Assessment Tight left hip ERotators Joint Mobility Assessment Joint Mobility Assessment Normal joint mob PT-OP-G Mobility & Gait Start: 08/20/18 08:11 Freq: Status: Active Protocol: Document 08/20/18 08:57 EA (Rec: 08/20/18 09:56 EA [id number]) OP Gait Assessment Gait Gait Assistance Required: Independent Able to Maintain Weight Bearing Status Yes During Gait Assistive Devices Assistive Device None Factors Limiting Gait Function Factors Limiting Gait Function Pain Comments Gait Comments Incresead left lateral pelvic displacement PT-OP-J Posture/Palpation/Skin Start: 08/20/18 08:11 Freq: Status: Active Protocol: Document 08/20/18 08:57 EA (Rec: 08/20/18 09:56 EA [id number]) Posture Evaluation Position Standing Evaluation View Post/Lat Head/C-Spine Posture Neutral Position T-Spine Posture Neutral Thorax Posture Neutral L-Spine Posture Neutral Shoulder Posture Neutral Pelvis Posture Neutral (L) Iliac Crest Inferior (L) ASIS Inferior Hip Posture (L) Externally Rotated Comments Posture Comments Left LE shorter than right by 2 cm Palpation Assessment Location One Palpation Location Left upper gluteal, hip Erotators, greater trochanter. Palpation Findings Soft Tissue Tightness Tenderness Palpation Details Grade 2/4 tenderness PT-OP-K Range of Motion Start: 08/20/18 08:11 Freq: Status: Active Protocol: Document 08/20/18 09:56 EA (Rec: 08/20/18 09:58 EA [id number]) Hip Goniometric Range of Motion Hip Measured in Degrees Right Hip ROM WFL Yes Left Active Flexion w/Knee Flexed 145 Extension 30 Abduction 45 Internal Rotation 15 External Rotation 30 Hip ROM Limitations Hip ROM Limitations Soft Tissue Tightness Pain Knee Goniometric Range of Motion Knee Measured in Degrees Left Knee ROM WFL Yes PT-OP-L Special Tests Start: 08/20/18 08:11 Freq: Status: Active Protocol: Document 08/20/18 08:57 EA (Rec: 08/20/18 09:56 EA [id number]) Special Tests Hip Special Tests Musa Test Results - Piriformis Test Results sensitive OUSMANE Test Results - Trendelenberg Test Results - Straight Leg Raise Test Results - Cate's Test Test Results - Knee Special Tests Nat's Test Test Results - PT-OP-M Strength Start: 08/20/18 08:11 Freq: Status: Active Protocol: Document 08/20/18 08:57 EA (Rec: 08/20/18 09:56 EA [id number]) Hip Strength Hip Manual Muscle Testing Left Flexion (L2) 5 Normal Extension (S1) 4+ Good+ Abduction 5 Normal Adduction 4+ Good+ External Rotation 4- Good- Internal Rotation 3+ Fair+ Knee Strength Knee Manual Muscle Testing Left Reason Not Measured WFL Ankle/Foot Strength Ankle and Foot Manual Muscle Testing Left Reason Not Measured WFL PT-OP-Q Treatments Start: 08/20/18 08:11 Freq: Status: Active Protocol: Document 09/22/18 09:01 EA (Rec: 09/22/18 09:06 EA [id number]) Cardio Equipment Recumbent Stepper (Sci-Fit) Duration (Minutes) 7 Resistance 3 Gym Equipment Shuttle Recovery Bilateral Squats Resistance 4 cords Reps/Time 15 reps x 2 Therapeutic Exercises Supine Exercises 3 Supine Exercise Name Bridging with marching Reps/Minutes x 10 reps x 2 sets 2 Supine Exercise Name Bridge w/ hip bilate abd Resistance BTB Reps/Minutes x 10 reps x 2 sets 1 Supine Exercise Name Figure of 4 stretch Reps/Minutes x 15SH x 2 Sitting Exercises 3 Sitting Exercise Name Piriformis stretch/cross leg stretch Reps/Minutes x 30SH x 2 2 Sitting Exercise Name Hip Irotation Resistance Lv1 Reps/Minutes x 12 reps x 2 Comments stabilize knee 1 Sitting Exercise Name HIP external rot Side left Resistance BTB/Lv1 Reps/Minutes x 12 reps x 2 Standing Exercises 2 Standing Exercise Name side step Resistance GTB Reps/Minutes x 12 feet x 4 lines 1 Standing Exercise Name Squat: ABDUctors activitation Resistance GTB Reps/Minutes x 12 reps x 2 Manual Therapy Treatment Soft Tissue Mobilization 1 Body Location Left upper/lower gluteals Mobilization Type Myofascial Release Sustained Pressure Trigger Point Release Intensity/Depth Moderate Body Position Sidelying Comments pillow inbet knees PT-OP-R Modalities Start: 08/20/18 08:11 Freq: Status: Active Protocol: Document 09/22/18 09:01 EA (Rec: 09/22/18 09:06 EA [id number]) Electric Stimulation Electric Stimulation Interferential Current (IFC) Body Location left gluteals/ ERotators Duration (Minutes) 15 Intensity 20 Patient Position Sidelying Combined With Heat/Cold Hot Pack PT-OP-T Assessment and Plan Start: 08/20/18 08:11 Freq: Status: Active Protocol: Document 09/22/18 09:01 EA (Rec: 09/22/18 09:06 EA [id number]) Physical Therapy Assessment Assessment Summary Assessment Pt tolerated treatment with no discomfort noted during therex . Physical Therapy Plan Next Visit Focus/Plan Next Note Type Treatment Note Next Visit Plan Cont. with current plan. Progress as tolerated.
--- NOTE | 2018-09-24 11:11 | PT.OTN ---
Current Diagnoses Pain in left hip (09/24/18) Physical Therapy Treatment Note PT-OP-A Visit Information Start: 08/20/18 08:11 Freq: Status: Active Protocol: Document 09/24/18 09:01 EA (Rec: 09/24/18 09:06 EA [id number]) Out-Patient Physical Therapy Visit Information Visit Information Visit Type Treatment Note Visit Start Time 08:15 Visit Stop Time 09:09 Total Visit Minutes 55 Visit Number 7 Number of REPAIR DEPARTMENT SUPERVISOR Visits 0 PT-OP-B Current Condition Start: 08/20/18 08:11 Freq: Status: Active Protocol: Document 08/20/18 08:57 EA (Rec: 08/20/18 09:56 EA [id number]) Current Condition History of Current Condition Onset Date Mid May 2018 Current Complaints gait difficulty due to localized left hip pain History of Current Condition Patient reports present condition started on mid- May with no known injury or significant past medical history; states it starts gradually from shifting of cycling exercises daily to walking 3 miles per day. Patient went to her physician due to decreasing mobility as pain tends to increased with increasing distance. Patient received pain meds and home stretch that helps a bit only. Patient denies any loss of function and abnormal sensation. Patient denies any diagnostic imaging performed in the past months. Prior Treatments and Tests None identified Future Testing and Treatments Planned None identified Treatment Goals Patient/Caregiver Goals Patient wants to eliminate pain completely so she can go back to her PLOF (active lifestyle) Prior Functional Status Baseline Function- ADL's Independent Baseline Function- Mobility Independent Baseline Function- Gait Indep with no limitation Baseline Function- Work/School retired Baseline Function- Recreation/Hobbies Cycling exercises 5 times per week or walking more than 2 miles daily. Current Functional Impairments (Reported) Functional Limitations- ADL's Independent Functional Limitations- Mobility/Gait Unable to walk more than a mile due to increasing pain Functional Limitations- Work/School retired Functional Limitations- Recreation/ Unable to perform cycling and Hobbies distance walking due to increasing pain with increasing distance. PT-OP-C Subjective Start: 08/20/18 08:11 Freq: Status: Active Protocol: Document 09/24/18 09:01 EA (Rec: 09/24/18 09:06 EA [id number]) OP-PT Subjective Patient Comments Patient Comments Pt reports left hip is quite sore today after last session but no difficulty in all activities. Overall she feels improving. PT-OP-F Manual Assessment Start: 08/20/18 08:11 Freq: Status: Active Protocol: Document 08/20/18 08:57 EA (Rec: 08/20/18 09:56 EA [id number]) Manual Assessments Soft Tissue Assessment Soft Tissue Mobility Assessment Tight left hip ERotators Joint Mobility Assessment Joint Mobility Assessment Normal joint mob PT-OP-G Mobility & Gait Start: 08/20/18 08:11 Freq: Status: Active Protocol: Document 08/20/18 08:57 EA (Rec: 08/20/18 09:56 EA [id number]) OP Gait Assessment Gait Gait Assistance Required: Independent Able to Maintain Weight Bearing Status Yes During Gait Assistive Devices Assistive Device None Factors Limiting Gait Function Factors Limiting Gait Function Pain Comments Gait Comments Incresead left lateral pelvic displacement PT-OP-J Posture/Palpation/Skin Start: 08/20/18 08:11 Freq: Status: Active Protocol: Document 08/20/18 08:57 EA (Rec: 08/20/18 09:56 EA [id number]) Posture Evaluation Position Standing Evaluation View Post/Lat Head/C-Spine Posture Neutral Position T-Spine Posture Neutral Thorax Posture Neutral L-Spine Posture Neutral Shoulder Posture Neutral Pelvis Posture Neutral (L) Iliac Crest Inferior (L) ASIS Inferior Hip Posture (L) Externally Rotated Comments Posture Comments Left LE shorter than right by 2 cm Palpation Assessment Location One Palpation Location Left upper gluteal, hip Erotators, greater trochanter. Palpation Findings Soft Tissue Tightness Tenderness Palpation Details Grade 2/4 tenderness PT-OP-K Range of Motion Start: 08/20/18 08:11 Freq: Status: Active Protocol: Document 08/20/18 09:56 EA (Rec: 08/20/18 09:58 EA [id number]) Hip Goniometric Range of Motion Hip Measured in Degrees Right Hip ROM WFL Yes Left Active Flexion w/Knee Flexed 145 Extension 30 Abduction 45 Internal Rotation 15 External Rotation 30 Hip ROM Limitations Hip ROM Limitations Soft Tissue Tightness Pain Knee Goniometric Range of Motion Knee Measured in Degrees Left Knee ROM WFL Yes PT-OP-L Special Tests Start: 08/20/18 08:11 Freq: Status: Active Protocol: Document 08/20/18 08:57 EA (Rec: 08/20/18 09:56 EA [id number]) Special Tests Hip Special Tests Musa Test Results - Piriformis Test Results sensitive OUSMANE Test Results - Trendelenberg Test Results - Straight Leg Raise Test Results - Cate's Test Test Results - Knee Special Tests Nat's Test Test Results - PT-OP-M Strength Start: 08/20/18 08:11 Freq: Status: Active Protocol: Document 08/20/18 08:57 EA (Rec: 08/20/18 09:56 EA [id number]) Hip Strength Hip Manual Muscle Testing Left Flexion (L2) 5 Normal Extension (S1) 4+ Good+ Abduction 5 Normal Adduction 4+ Good+ External Rotation 4- Good- Internal Rotation 3+ Fair+ Knee Strength Knee Manual Muscle Testing Left Reason Not Measured WFL Ankle/Foot Strength Ankle and Foot Manual Muscle Testing Left Reason Not Measured WFL PT-OP-Q Treatments Start: 08/20/18 08:11 Freq: Status: Active Protocol: Document 09/24/18 09:01 EA (Rec: 09/24/18 09:06 EA [id number]) Cardio Equipment Recumbent Stepper (Sci-Fit) Duration (Minutes) 5 Resistance 3 Gym Equipment Shuttle Recovery Bilateral Squats Resistance 4 cords Reps/Time 15 reps x 2 Therapeutic Exercises Supine Exercises 4 Supine Exercise Name PPT with SLR Reps/Minutes x 15 reps x 2 sets each leg 3 Supine Exercise Name Bridging with marching Reps/Minutes x 10 reps x 2 sets 2 Supine Exercise Name Bridge w/ hip bilate abd Resistance BTB Reps/Minutes x 10 reps x 2 sets 1 Supine Exercise Name Figure of 4 stretch Reps/Minutes x 15SH x 2 Sitting Exercises 3 Sitting Exercise Name Piriformis stretch/cross leg stretch Reps/Minutes x 30SH x 2 2 Sitting Exercise Name Hip Irotation Resistance Lv2 Reps/Minutes x 12 reps x 2 Comments stabilize knee 1 Sitting Exercise Name HIP external rot Side left Resistance BTB/Lv2 Reps/Minutes x 12 reps x 2 Standing Exercises 1 Standing Exercise Name Squat: ABDUctors activitation Resistance GTB Reps/Minutes x 12 reps x 2 PT-OP-R Modalities Start: 08/20/18 08:11 Freq: Status: Active Protocol: Document 09/24/18 09:01 EA (Rec: 09/24/18 09:06 EA [id number]) Electric Stimulation Electric Stimulation Interferential Current (IFC) Body Location left gluteals/ ERotators Duration (Minutes) 15 Intensity 20 Patient Position Sidelying Combined With Heat/Cold Hot Pack PT-OP-T Assessment and Plan Start: 08/20/18 08:11 Freq: Status: Active Protocol: Document 09/24/18 09:01 KATHERINE (Rec: 09/24/18 09:06 KATHERINE [id number]) Physical Therapy Assessment Assessment Summary Assessment Pt able to perform functional therex with no discomfort; noted a bit tender with manual PT. Patient will continue to benefit with PT. Physical Therapy Plan Next Visit Focus/Plan Next Note Type Treatment Note Next Visit Plan advance as tolerated
--- NOTE | 2018-09-29 13:01 | PT.OTN ---
Current Diagnoses Pain in left hip (09/29/18) Physical Therapy Treatment Note PT-OP-A Visit Information Start: 08/20/18 08:11 Freq: Status: Active Protocol: Document 09/29/18 09:03 EA (Rec: 09/29/18 09:07 EA [id number]) Out-Patient Physical Therapy Visit Information Visit Information Visit Type Treatment Note Visit Start Time 08:15 Visit Stop Time 09:09 Total Visit Minutes 55 Visit Number 8 Number of RING MAKING MACHINE OPERATOR Visits 0 PT-OP-B Current Condition Start: 08/20/18 08:11 Freq: Status: Active Protocol: Document 08/20/18 08:57 EA (Rec: 08/20/18 09:56 EA [id number]) Current Condition History of Current Condition Onset Date Mid May 2018 Current Complaints gait difficulty due to localized left hip pain History of Current Condition Patient reports present condition started on mid- May with no known injury or significant past medical history; states it starts gradually from shifting of cycling exercises daily to walking 3 miles per day. Patient went to her physician due to decreasing mobility as pain tends to increased with increasing distance. Patient received pain meds and home stretch that helps a bit only. Patient denies any loss of function and abnormal sensation. Patient denies any diagnostic imaging performed in the past months. Prior Treatments and Tests None identified Future Testing and Treatments Planned None identified Treatment Goals Patient/Caregiver Goals Patient wants to eliminate pain completely so she can go back to her PLOF (active lifestyle) Prior Functional Status Baseline Function- ADL's Independent Baseline Function- Mobility Independent Baseline Function- Gait Indep with no limitation Baseline Function- Work/School retired Baseline Function- Recreation/Hobbies Cycling exercises 5 times per week or walking more than 2 miles daily. Current Functional Impairments (Reported) Functional Limitations- ADL's Independent Functional Limitations- Mobility/Gait Unable to walk more than a mile due to increasing pain Functional Limitations- Work/School retired Functional Limitations- Recreation/ Unable to perform cycling and Hobbies distance walking due to increasing pain with increasing distance. PT-OP-C Subjective Start: 08/20/18 08:11 Freq: Status: Active Protocol: Document 09/29/18 09:03 EA (Rec: 09/29/18 09:07 EA [id number]) OP-PT Subjective Patient Comments Patient Comments Pt reports complaint with HEP and left hip is improving well ; states pain is much less at this time. PT-OP-F Manual Assessment Start: 08/20/18 08:11 Freq: Status: Active Protocol: Document 08/20/18 08:57 EA (Rec: 08/20/18 09:56 EA [id number]) Manual Assessments Soft Tissue Assessment Soft Tissue Mobility Assessment Tight left hip ERotators Joint Mobility Assessment Joint Mobility Assessment Normal joint mob PT-OP-G Mobility & Gait Start: 08/20/18 08:11 Freq: Status: Active Protocol: Document 08/20/18 08:57 EA (Rec: 08/20/18 09:56 EA [id number]) OP Gait Assessment Gait Gait Assistance Required: Independent Able to Maintain Weight Bearing Status Yes During Gait Assistive Devices Assistive Device None Factors Limiting Gait Function Factors Limiting Gait Function Pain Comments Gait Comments Incresead left lateral pelvic displacement PT-OP-J Posture/Palpation/Skin Start: 08/20/18 08:11 Freq: Status: Active Protocol: Document 08/20/18 08:57 EA (Rec: 08/20/18 09:56 EA [id number]) Posture Evaluation Position Standing Evaluation View Post/Lat Head/C-Spine Posture Neutral Position T-Spine Posture Neutral Thorax Posture Neutral L-Spine Posture Neutral Shoulder Posture Neutral Pelvis Posture Neutral (L) Iliac Crest Inferior (L) ASIS Inferior Hip Posture (L) Externally Rotated Comments Posture Comments Left LE shorter than right by 2 cm Palpation Assessment Location One Palpation Location Left upper gluteal, hip Erotators, greater trochanter. Palpation Findings Soft Tissue Tightness Tenderness Palpation Details Grade 2/4 tenderness PT-OP-K Range of Motion Start: 08/20/18 08:11 Freq: Status: Active Protocol: Document 08/20/18 09:56 EA (Rec: 08/20/18 09:58 EA [id number]) Hip Goniometric Range of Motion Hip Measured in Degrees Right Hip ROM WFL Yes Left Active Flexion w/Knee Flexed 145 Extension 30 Abduction 45 Internal Rotation 15 External Rotation 30 Hip ROM Limitations Hip ROM Limitations Soft Tissue Tightness Pain Knee Goniometric Range of Motion Knee Measured in Degrees Left Knee ROM WFL Yes PT-OP-L Special Tests Start: 08/20/18 08:11 Freq: Status: Active Protocol: Document 08/20/18 08:57 EA (Rec: 08/20/18 09:56 EA [id number]) Special Tests Hip Special Tests Musa Test Results - Piriformis Test Results sensitive OUSMANE Test Results - Trendelenberg Test Results - Straight Leg Raise Test Results - Cate's Test Test Results - Knee Special Tests Nat's Test Test Results - PT-OP-M Strength Start: 08/20/18 08:11 Freq: Status: Active Protocol: Document 08/20/18 08:57 EA (Rec: 08/20/18 09:56 EA [id number]) Hip Strength Hip Manual Muscle Testing Left Flexion (L2) 5 Normal Extension (S1) 4+ Good+ Abduction 5 Normal Adduction 4+ Good+ External Rotation 4- Good- Internal Rotation 3+ Fair+ Knee Strength Knee Manual Muscle Testing Left Reason Not Measured WFL Ankle/Foot Strength Ankle and Foot Manual Muscle Testing Left Reason Not Measured WFL PT-OP-Q Treatments Start: 08/20/18 08:11 Freq: Status: Active Protocol: Document 09/29/18 09:03 EA (Rec: 09/29/18 09:07 EA [id number]) Cardio Equipment Recumbent Stepper (Sci-Fit) Duration (Minutes) 5 Resistance 3.5 Gym Equipment Shuttle Recovery Bilateral Squats Resistance 5 cords Reps/Time 15 reps x 2 Therapeutic Exercises Supine Exercises 4 Supine Exercise Name PPT with SLR Reps/Minutes x 15 reps x 2 sets each leg 3 Supine Exercise Name Bridging with marching Reps/Minutes x 10 reps x 2 sets 2 Supine Exercise Name Bridge w/ hip bilate abd Resistance BTB Reps/Minutes x 10 reps x 2 sets 1 Supine Exercise Name Figure of 4 stretch Reps/Minutes x 15SH x 2 Sitting Exercises 3 Sitting Exercise Name Piriformis stretch/cross leg stretch Reps/Minutes x 30SH x 2 2 Sitting Exercise Name Hip Irotation Resistance Lv3 Reps/Minutes x 12 reps x 2 Comments stabilize knee 1 Sitting Exercise Name HIP external rot Side left Resistance GTB/Lv3 Reps/Minutes x 12 reps x 2 Standing Exercises 3 Standing Exercise Name Lunges Reps/Minutes x 12 steps Comments partial range 2 Standing Exercise Name side step Resistance GTB Reps/Minutes x 12 feet x 4 lines 1 Standing Exercise Name Squat: ABDUctors activitation Resistance GTB Reps/Minutes x 12 reps x 2 Manual Therapy Treatment Soft Tissue Mobilization 1 Body Location Left upper/lower gluteals Mobilization Type Myofascial Release Sustained Pressure Trigger Point Release Intensity/Depth Moderate Body Position Sidelying Comments pillow inbet knees PT-OP-R Modalities Start: 08/20/18 08:11 Freq: Status: Active Protocol: Document 09/29/18 09:03 EA (Rec: 09/29/18 09:07 EA [id number]) Electric Stimulation Electric Stimulation Interferential Current (IFC) Body Location left gluteals/ ERotators Duration (Minutes) 15 Intensity 20 Patient Position Sidelying Combined With Heat/Cold Hot Pack PT-OP-T Assessment and Plan Start: 08/20/18 08:11 Freq: Status: Active Protocol: Document 09/29/18 09:03 EA (Rec: 09/29/18 09:07 EA [id number]) Physical Therapy Assessment Assessment Summary Assessment Improved functional exercises tolerance. Patient is progressing very well. Physical Therapy Plan Next Visit Focus/Plan Next Note Type Treatment Note Next Visit Plan advance as tolerated
--- NOTE | 2018-10-01 15:41 | PT.OTN ---
Current Diagnoses Pain in left hip (10/01/18) Physical Therapy Treatment Note PT-OP-A Visit Information Start: 08/20/18 08:11 Freq: Status: Active Protocol: Document 10/01/18 09:05 EA (Rec: 10/01/18 09:09 EA [id number]) Out-Patient Physical Therapy Visit Information Visit Information Visit Type Treatment Note Visit Start Time 08:15 Visit Stop Time 09:09 Total Visit Minutes 55 Visit Number 9 Number of FLAME GOUGER Visits 0 PT-OP-B Current Condition Start: 08/20/18 08:11 Freq: Status: Active Protocol: Document 08/20/18 08:57 EA (Rec: 08/20/18 09:56 EA [id number]) Current Condition History of Current Condition Onset Date Mid May 2018 Current Complaints gait difficulty due to localized left hip pain History of Current Condition Patient reports present condition started on mid- May with no known injury or significant past medical history; states it starts gradually from shifting of cycling exercises daily to walking 3 miles per day. Patient went to her physician due to decreasing mobility as pain tends to increased with increasing distance. Patient received pain meds and home stretch that helps a bit only. Patient denies any loss of function and abnormal sensation. Patient denies any diagnostic imaging performed in the past months. Prior Treatments and Tests None identified Future Testing and Treatments Planned None identified Treatment Goals Patient/Caregiver Goals Patient wants to eliminate pain completely so she can go back to her PLOF (active lifestyle) Prior Functional Status Baseline Function- ADL's Independent Baseline Function- Mobility Independent Baseline Function- Gait Indep with no limitation Baseline Function- Work/School retired Baseline Function- Recreation/Hobbies Cycling exercises 5 times per week or walking more than 2 miles daily. Current Functional Impairments (Reported) Functional Limitations- ADL's Independent Functional Limitations- Mobility/Gait Unable to walk more than a mile due to increasing pain Functional Limitations- Work/School retired Functional Limitations- Recreation/ Unable to perform cycling and Hobbies distance walking due to increasing pain with increasing distance. PT-OP-C Subjective Start: 08/20/18 08:11 Freq: Status: Active Protocol: Document 10/01/18 09:05 EA (Rec: 10/01/18 09:09 EA [id number]) OP-PT Subjective Patient Comments Patient Comments Pt reports pain is getting much better; states it does not wake her at night. PT-OP-F Manual Assessment Start: 08/20/18 08:11 Freq: Status: Active Protocol: Document 08/20/18 08:57 EA (Rec: 08/20/18 09:56 EA [id number]) Manual Assessments Soft Tissue Assessment Soft Tissue Mobility Assessment Tight left hip ERotators Joint Mobility Assessment Joint Mobility Assessment Normal joint mob PT-OP-G Mobility & Gait Start: 08/20/18 08:11 Freq: Status: Active Protocol: Document 08/20/18 08:57 EA (Rec: 08/20/18 09:56 EA [id number]) OP Gait Assessment Gait Gait Assistance Required: Independent Able to Maintain Weight Bearing Status Yes During Gait Assistive Devices Assistive Device None Factors Limiting Gait Function Factors Limiting Gait Function Pain Comments Gait Comments Incresead left lateral pelvic displacement PT-OP-J Posture/Palpation/Skin Start: 08/20/18 08:11 Freq: Status: Active Protocol: Document 08/20/18 08:57 EA (Rec: 08/20/18 09:56 EA [id number]) Posture Evaluation Position Standing Evaluation View Post/Lat Head/C-Spine Posture Neutral Position T-Spine Posture Neutral Thorax Posture Neutral L-Spine Posture Neutral Shoulder Posture Neutral Pelvis Posture Neutral (L) Iliac Crest Inferior (L) ASIS Inferior Hip Posture (L) Externally Rotated Comments Posture Comments Left LE shorter than right by 2 cm Palpation Assessment Location One Palpation Location Left upper gluteal, hip Erotators, greater trochanter. Palpation Findings Soft Tissue Tightness Tenderness Palpation Details Grade 2/4 tenderness PT-OP-K Range of Motion Start: 08/20/18 08:11 Freq: Status: Active Protocol: Document 08/20/18 09:56 EA (Rec: 08/20/18 09:58 EA [id number]) Hip Goniometric Range of Motion Hip Measured in Degrees Right Hip ROM WFL Yes Left Active Flexion w/Knee Flexed 145 Extension 30 Abduction 45 Internal Rotation 15 External Rotation 30 Hip ROM Limitations Hip ROM Limitations Soft Tissue Tightness Pain Knee Goniometric Range of Motion Knee Measured in Degrees Left Knee ROM WFL Yes PT-OP-L Special Tests Start: 08/20/18 08:11 Freq: Status: Active Protocol: Document 08/20/18 08:57 EA (Rec: 08/20/18 09:56 EA [id number]) Special Tests Hip Special Tests Musa Test Results - Piriformis Test Results sensitive OUSMANE Test Results - Trendelenberg Test Results - Straight Leg Raise Test Results - Cate's Test Test Results - Knee Special Tests Nat's Test Test Results - PT-OP-M Strength Start: 08/20/18 08:11 Freq: Status: Active Protocol: Document 08/20/18 08:57 EA (Rec: 08/20/18 09:56 EA [id number]) Hip Strength Hip Manual Muscle Testing Left Flexion (L2) 5 Normal Extension (S1) 4+ Good+ Abduction 5 Normal Adduction 4+ Good+ External Rotation 4- Good- Internal Rotation 3+ Fair+ Knee Strength Knee Manual Muscle Testing Left Reason Not Measured WFL Ankle/Foot Strength Ankle and Foot Manual Muscle Testing Left Reason Not Measured WFL PT-OP-Q Treatments Start: 08/20/18 08:11 Freq: Status: Active Protocol: Document 10/01/18 09:05 EA (Rec: 10/01/18 09:09 EA [id number]) Cardio Equipment Elliptical Duration (Minutes) 6 Resistance 3 Gym Equipment Shuttle Recovery Bilateral Squats Resistance 5-6 cords Reps/Time 15 reps x 2 Therapeutic Exercises Supine Exercises 4 Supine Exercise Name PPT with SLR Reps/Minutes x 15 reps x 2 sets each leg 3 Supine Exercise Name Bridging with marching Resistance GTB Reps/Minutes x 10 reps x 2 sets 2 Supine Exercise Name Bridge w/ hip bilate abd Resistance GTB Reps/Minutes x 10 reps x 2 sets 1 Supine Exercise Name Figure of 4 stretch Reps/Minutes x 15SH x 2 Sitting Exercises 3 Sitting Exercise Name Piriformis stretch/cross leg stretch Reps/Minutes x 30SH x 2 2 Sitting Exercise Name Hip Irotation Resistance Lv3 Reps/Minutes x 12 reps x 2 Comments stabilize knee 1 Sitting Exercise Name HIP external rot Side left Resistance GTB/Lv3 Reps/Minutes x 12 reps x 2 Standing Exercises 3 Standing Exercise Name Lunges Reps/Minutes x 12 steps Comments Full lunge: FWD 2 Standing Exercise Name side step Resistance GTB Reps/Minutes x 12 feet x 4 lines 1 Standing Exercise Name Squat: ABDUctors activitation Resistance GTB Reps/Minutes x 12 reps x 2 PT-OP-R Modalities Start: 08/20/18 08:11 Freq: Status: Active Protocol: Document 10/01/18 09:40 EA (Rec: 10/01/18 09:40 EA [id number]) Electric Stimulation Electric Stimulation Interferential Current (IFC) Body Location left gluteals/ ERotators Duration (Minutes) 15 Intensity 24 Patient Position Sidelying Combined With Heat/Cold Hot Pack PT-OP-T Assessment and Plan Start: 08/20/18 08:11 Freq: Status: Active Protocol: Document 10/01/18 09:05 EA (Rec: 10/01/18 09:09 EA [id number]) Physical Therapy Assessment Progress Towards Goals Progress Towards Goals Progressing Toward Goals Assessment Summary Assessment Improved functional exercises tolerance. Decreased tenderness to left hip region. Patient is progressing very well. Physical Therapy Plan Next Visit Focus/Plan Next Note Type Treatment Note Next Visit Plan advance as tolerated
--- NOTE | 2018-10-07 15:50 | PT.OTN ---
Current Diagnoses Pain in left hip (10/07/18) Physical Therapy Treatment Note PT-OP-A Visit Information Start: 08/20/18 08:11 Freq: Status: Active Protocol: Document 10/07/18 09:00 GGD (Rec: 10/07/18 15:50 GGD [id number]) Out-Patient Physical Therapy Visit Information Visit Information Visit Type Treatment Note Visit Start Time 09:00 Visit Stop Time 09:55 Total Visit Minutes 55 Visit Number 10 Number of WET WHEELER Visits 1 PT-OP-B Current Condition Start: 08/20/18 08:11 Freq: Status: Active Protocol: Document 08/20/18 08:57 EA (Rec: 08/20/18 09:56 EA [id number]) Current Condition History of Current Condition Onset Date Mid May 2018 Current Complaints gait difficulty due to localized left hip pain History of Current Condition Patient reports present condition started on mid- May with no known injury or significant past medical history; states it starts gradually from shifting of cycling exercises daily to walking 3 miles per day. Patient went to her physician due to decreasing mobility as pain tends to increased with increasing distance. Patient received pain meds and home stretch that helps a bit only. Patient denies any loss of function and abnormal sensation. Patient denies any diagnostic imaging performed in the past months. Prior Treatments and Tests None identified Future Testing and Treatments Planned None identified Treatment Goals Patient/Caregiver Goals Patient wants to eliminate pain completely so she can go back to her PLOF (active lifestyle) Prior Functional Status Baseline Function- ADL's Independent Baseline Function- Mobility Independent Baseline Function- Gait Indep with no limitation Baseline Function- Work/School retired Baseline Function- Recreation/Hobbies Cycling exercises 5 times per week or walking more than 2 miles daily. Current Functional Impairments (Reported) Functional Limitations- ADL's Independent Functional Limitations- Mobility/Gait Unable to walk more than a mile due to increasing pain Functional Limitations- Work/School retired Functional Limitations- Recreation/ Unable to perform cycling and Hobbies distance walking due to increasing pain with increasing distance. PT-OP-C Subjective Start: 08/20/18 08:11 Freq: Status: Active Protocol: Document 10/07/18 09:00 GGD (Rec: 10/07/18 15:50 GGD [id number]) OP-PT Subjective Patient Comments Patient Comments Pt states she doing better. she was able to hike 4 mile without increase in pain. PT-OP-F Manual Assessment Start: 08/20/18 08:11 Freq: Status: Active Protocol: Document 08/20/18 08:57 EA (Rec: 08/20/18 09:56 EA [id number]) Manual Assessments Soft Tissue Assessment Soft Tissue Mobility Assessment Tight left hip ERotators Joint Mobility Assessment Joint Mobility Assessment Normal joint mob PT-OP-G Mobility & Gait Start: 08/20/18 08:11 Freq: Status: Active Protocol: Document 08/20/18 08:57 EA (Rec: 08/20/18 09:56 EA [id number]) OP Gait Assessment Gait Gait Assistance Required: Independent Able to Maintain Weight Bearing Status Yes During Gait Assistive Devices Assistive Device None Factors Limiting Gait Function Factors Limiting Gait Function Pain Comments Gait Comments Incresead left lateral pelvic displacement PT-OP-J Posture/Palpation/Skin Start: 08/20/18 08:11 Freq: Status: Active Protocol: Document 08/20/18 08:57 EA (Rec: 08/20/18 09:56 EA [id number]) Posture Evaluation Position Standing Evaluation View Post/Lat Head/C-Spine Posture Neutral Position T-Spine Posture Neutral Thorax Posture Neutral L-Spine Posture Neutral Shoulder Posture Neutral Pelvis Posture Neutral (L) Iliac Crest Inferior (L) ASIS Inferior Hip Posture (L) Externally Rotated Comments Posture Comments Left LE shorter than right by 2 cm Palpation Assessment Location One Palpation Location Left upper gluteal, hip Erotators, greater trochanter. Palpation Findings Soft Tissue Tightness Tenderness Palpation Details Grade 2/4 tenderness PT-OP-K Range of Motion Start: 08/20/18 08:11 Freq: Status: Active Protocol: Document 08/20/18 09:56 EA (Rec: 08/20/18 09:58 EA [id number]) Hip Goniometric Range of Motion Hip Measured in Degrees Right Hip ROM WFL Yes Left Active Flexion w/Knee Flexed 145 Extension 30 Abduction 45 Internal Rotation 15 External Rotation 30 Hip ROM Limitations Hip ROM Limitations Soft Tissue Tightness Pain Knee Goniometric Range of Motion Knee Measured in Degrees Left Knee ROM WFL Yes PT-OP-L Special Tests Start: 08/20/18 08:11 Freq: Status: Active Protocol: Document 08/20/18 08:57 EA (Rec: 08/20/18 09:56 EA [id number]) Special Tests Hip Special Tests Musa Test Results - Piriformis Test Results sensitive OUSMANE Test Results - Trendelenberg Test Results - Straight Leg Raise Test Results - Cate's Test Test Results - Knee Special Tests Nat's Test Test Results - PT-OP-M Strength Start: 08/20/18 08:11 Freq: Status: Active Protocol: Document 08/20/18 08:57 EA (Rec: 08/20/18 09:56 EA [id number]) Hip Strength Hip Manual Muscle Testing Left Flexion (L2) 5 Normal Extension (S1) 4+ Good+ Abduction 5 Normal Adduction 4+ Good+ External Rotation 4- Good- Internal Rotation 3+ Fair+ Knee Strength Knee Manual Muscle Testing Left Reason Not Measured WFL Ankle/Foot Strength Ankle and Foot Manual Muscle Testing Left Reason Not Measured WFL PT-OP-Q Treatments Start: 08/20/18 08:11 Freq: Status: Active Protocol: Document 10/07/18 09:00 GGD (Rec: 10/07/18 15:50 GGD [id number]) Cardio Equipment Elliptical Duration (Minutes) 6 Resistance 3 Gym Equipment Shuttle Recovery Bilateral Squats Resistance 5-6 cords Reps/Time 15 reps x 2 Therapeutic Exercises Sitting Exercises 3 Sitting Exercise Name Piriformis stretch/cross leg stretch Reps/Minutes x 30SH x 2 2 Sitting Exercise Name Hip Irotation Resistance Lv3 Reps/Minutes x 12 reps x 2 Comments stabilize knee 1 Sitting Exercise Name HIP external rot Side left Resistance GTB/Lv3 Reps/Minutes x 12 reps x 2 Standing Exercises 4 Standing Exercise Name standing hip extension Side bilateral Resistance green Reps/Minutes 15 x 3 Standing Exercise Name Lunges Reps/Minutes x 12 steps Comments Full lunge: FWD 2 Standing Exercise Name side step Resistance GTB Reps/Minutes x 12 feet x 4 lines 1 Standing Exercise Name Squat: ABDUctors activitation Resistance GTB Reps/Minutes x 12 reps x 2 PT-OP-R Modalities Start: 08/20/18 08:11 Freq: Status: Active Protocol: Document 10/07/18 09:00 GGD (Rec: 10/07/18 15:50 GGD [email or web address]) Electric Stimulation Electric Stimulation Interferential Current (IFC) Body Location left gluteals/ ERotators Duration (Minutes) 15 Intensity 24 Patient Position Sidelying Combined With Heat/Cold Hot Pack PT-OP-T Assessment and Plan Start: 08/20/18 08:11 Freq: Status: Active Protocol: Document 10/07/18 09:00 GGD (Rec: 10/07/18 15:50 GGD [email or web address]) Physical Therapy Assessment Assessment Summary Assessment Pt is progressing with strengthening. She does fatigued with hip strengthening. Physical Therapy Plan Next Visit Focus/Plan Next Note Type Treatment Note Next Visit Plan advance as tolerated
--- NOTE | 2018-10-16 16:29 | PT.OPPOC ---
Current Diagnoses Pain in left hip (10/16/18) Provider Visit Care Team Role Provider Type Bridgett Chaparro DO Family Provider Physician Primary Care Provider Specialty: Family Practice Address: [address] [place], [address] Email: [email or web address] YAMIL Rodriguez Attending Provider Advanced Shuttle Route Vehicle Operator Specialty: Medical Address: [address] [place] [address], [id number] Email: Plan Of Care PT-OP-T Assessment and Plan Start: 08/20/18 08:11 Freq: Status: Active Protocol: Document 10/16/18 08:15 EA (Rec: 10/16/18 09:11 EA [id number]) Physical Therapy Assessment Impairments Impairments Gait Pain Posture Soft Tissue Mobility Strength Goals Four Impairment Impaired walking tolerance Revenue Settlements Administrator Goal (LTG) Patient willl ambulaet > 2 miles per day without increase of symptoms LTG Duration 4 wks Three Impairment No HEP in place Nursing Home Goal (LTG) Patient will exhibit independent HEP LTG Duration 3 wks Two Impairment Impaired left hip strength Nursing Home Goal (LTG) Patient will increase left hip rotators by 1/2 to 1 grade for functional mobility. LTG Duration 5 wks One Impairment LEFS score of 46/80 Nursing Home Goal (LTG) Patient will have LEFS score of > 55/80 LTG Duration 4 wks Progress Towards Goals Progress Towards Goals Progressing Toward Goals Progress Comments excellent progress Assessment Summary Assessment Pt demonstrates excellent improvement in all functional mobility and exercises tolerance with no signs of altered mobility or compensatory mobility during isolated LE exercises. Pt would continue to benefit with skilled PT focusing on transitioning to fitness exercises. Additional HEP performed and given today with good carryover. Physical Therapy Plan Frequency and Duration Frequency of Treatment 1x/wk Duration of Treatment 3 wks Plan of Care Start Date 10/16/18 Plan of Care End Date 11/06/18 Therapeutic Interventions Therapeutic Interventions Gait Training Home Exercise Program Joint Mobilizations Manual Therapy Patient/Caregiver Education Self-Care/Home Management Soft Tissue Mobilization Taping Therapeutic Exercises Modalities Cold Pack/Ice Massage Electric Stimulation Hot Packs Ultrasound Next Visit Focus/Plan Next Note Type Treatment Note Next Visit Plan HEP and advnce exercises Plan of Care Dates Plan of Care Start Date 10/16/18 Plan of Care End Date 11/06/18 Please Sign and Return: I have reviewed this Plan of Care and certify that the skilled therapy services above are required to meet the patient?s needs. Physician Signature Date Printed Name and Credentials Clinical Instructor Signature Printed Name and Credentials
--- NOTE | 2018-10-16 17:28 | PT.OTN ---
Current Diagnoses Pain in left hip (10/16/18) Physical Therapy Treatment Note PT-OP-A Visit Information Start: 08/20/18 08:11 Freq: Status: Active Protocol: Document 10/16/18 08:15 EA (Rec: 10/16/18 09:11 EA [id number]) Out-Patient Physical Therapy Visit Information Visit Information Visit Type Treatment Note Visit Note re-eval performed today Visit Start Time 08:15 Visit Stop Time 09:09 Total Visit Minutes 55 Visit Number 11 Number of SKI TECHNICIAN Visits 1 PT-OP-B Current Condition Start: 08/20/18 08:11 Freq: Status: Active Protocol: Document 08/20/18 08:57 EA (Rec: 08/20/18 09:56 EA [id number]) Current Condition History of Current Condition Onset Date Mid May 2018 Current Complaints gait difficulty due to localized left hip pain History of Current Condition Patient reports present condition started on may with no known injury or significant past medical history; states it starts gradually from shifting of cycling exercises daily to walking 3 miles per day. Patient went to her physician due to decreasing mobility as pain tends to increased with increasing distance. Patient received pain meds and home stretch that helps a bit only. Patient denies any loss of function and abnormal sensation. Patient denies any diagnostic imaging performed in the past months. Prior Treatments and Tests None identified Future Testing and Treatments Planned None identified Treatment Goals Patient/Caregiver Goals Patient wants to eliminate pain completely so she can go back to her PLOF (active lifestyle) Prior Functional Status Baseline Function- ADL's Independent Baseline Function- Mobility Independent Baseline Function- Gait Indep with no limitation Baseline Function- Work/School retired Baseline Function- Recreation/Hobbies Cycling exercises 5 times per week or walking more than 2 miles daily. Current Functional Impairments (Reported) Functional Limitations- ADL's Independent Functional Limitations- Mobility/Gait Unable to walk more than a mile due to increasing pain Functional Limitations- Work/School retired Functional Limitations- Recreation/ Unable to perform cycling and Hobbies distance walking due to increasing pain with increasing distance. PT-OP-C Subjective Start: 08/20/18 08:11 Freq: Status: Active Protocol: Document 10/16/18 08:15 EA (Rec: 10/16/18 09:11 EA [id number]) OP-PT Subjective Patient Comments Patient Comments Pt states left hip quite sore; states she has been compliant with HEP and would like to know more. PT-OP-F Manual Assessment Start: 08/20/18 08:11 Freq: Status: Active Protocol: Document 08/20/18 08:57 EA (Rec: 08/20/18 09:56 EA [id number]) Manual Assessments Soft Tissue Assessment Soft Tissue Mobility Assessment Tight left hip ERotators Joint Mobility Assessment Joint Mobility Assessment Normal joint mob PT-OP-G Mobility & Gait Start: 08/20/18 08:11 Freq: Status: Active Protocol: Document 08/20/18 08:57 EA (Rec: 08/20/18 09:56 EA [id number]) OP Gait Assessment Gait Gait Assistance Required: Independent Able to Maintain Weight Bearing Status Yes During Gait Assistive Devices Assistive Device None Factors Limiting Gait Function Factors Limiting Gait Function Pain Comments Gait Comments Incresead left lateral pelvic displacement PT-OP-J Posture/Palpation/Skin Start: 08/20/18 08:11 Freq: Status: Active Protocol: Document 08/20/18 08:57 EA (Rec: 08/20/18 09:56 EA [id number]) Posture Evaluation Position Standing Evaluation View Post/Lat Head/C-Spine Posture Neutral Position T-Spine Posture Neutral Thorax Posture Neutral L-Spine Posture Neutral Shoulder Posture Neutral Pelvis Posture Neutral (L) Iliac Crest Inferior (L) ASIS Inferior Hip Posture (L) Externally Rotated Comments Posture Comments Left LE shorter than right by 2 cm Palpation Assessment Location One Palpation Location Left upper gluteal, hip Erotators, greater trochanter. Palpation Findings Soft Tissue Tightness Tenderness Palpation Details Grade 2/4 tenderness PT-OP-K Range of Motion Start: 08/20/18 08:11 Freq: Status: Active Protocol: Document 08/20/18 09:56 EA (Rec: 08/20/18 09:58 EA [id number]) Hip Goniometric Range of Motion Hip Measured in Degrees Right Hip ROM WFL Yes Left Active Flexion w/Knee Flexed 145 Extension 30 Abduction 45 Internal Rotation 15 External Rotation 30 Hip ROM Limitations Hip ROM Limitations Soft Tissue Tightness Pain Knee Goniometric Range of Motion Knee Measured in Degrees Left Knee ROM WFL Yes PT-OP-L Special Tests Start: 08/20/18 08:11 Freq: Status: Active Protocol: Document 08/20/18 08:57 EA (Rec: 08/20/18 09:56 EA [id number]) Special Tests Hip Special Tests Musa Test Results - Piriformis Test Results sensitive OUSMANE Test Results - Trendelenberg Test Results - Straight Leg Raise Test Results - Cate's Test Test Results - Knee Special Tests Nat's Test Test Results - PT-OP-M Strength Start: 08/20/18 08:11 Freq: Status: Active Protocol: Document 08/20/18 08:57 EA (Rec: 08/20/18 09:56 EA [id number]) Hip Strength Hip Manual Muscle Testing Left Flexion (L2) 5 Normal Extension (S1) 4+ Good+ Abduction 5 Normal Adduction 4+ Good+ External Rotation 4- Good- Internal Rotation 3+ Fair+ Knee Strength Knee Manual Muscle Testing Left Reason Not Measured WFL Ankle/Foot Strength Ankle and Foot Manual Muscle Testing Left Reason Not Measured WFL PT-OP-Q Treatments Start: 08/20/18 08:11 Freq: Status: Active Protocol: Document 10/16/18 08:15 EA (Rec: 10/16/18 09:11 EA [id number]) Cardio Equipment Recumbent Stepper (Sci-Fit) Duration (Minutes) 5 Resistance 3.5 Therapeutic Exercises Supine Exercises 4 Supine Exercise Name PPT with SLR Reps/Minutes x 15 reps x 2 sets each leg 3 Supine Exercise Name Bridging with marching Resistance GTB Reps/Minutes x 10 reps x 2 sets 2 Supine Exercise Name Bridge w/ hip bilate abd Resistance GTB Reps/Minutes x 10 reps x 2 sets 1 Supine Exercise Name Figure of 4 stretch Reps/Minutes x 15SH x 2 Sitting Exercises 3 Sitting Exercise Name Piriformis stretch/cross leg stretch Reps/Minutes x 30SH x 2 2 Sitting Exercise Name Hip Irotation Resistance Lv3 Reps/Minutes x 12 reps x 2 Comments stabilize knee 1 Sitting Exercise Name HIP external rot Side left Resistance GTB/Lv3 Reps/Minutes x 12 reps x 2 Standing Exercises 4 Standing Exercise Name standing hip extension Side bilateral Resistance green Reps/Minutes 15 x 3 Standing Exercise Name Lunges Reps/Minutes x 12 steps Comments Full lunge: FWD 2 Standing Exercise Name side step Resistance GTB Reps/Minutes x 12 feet x 4 lines 1 Standing Exercise Name Squat: ABDUctors activitation Resistance GTB Reps/Minutes x 12 reps x 2 PT-OP-R Modalities Start: 08/20/18 08:11 Freq: Status: Active Protocol: Document 10/16/18 08:15 EA (Rec: 10/16/18 09:11 EA [id number]) Electric Stimulation Electric Stimulation Interferential Current (IFC) Body Location left gluteals/ ERotators Duration (Minutes) 15 Intensity 24 Patient Position Sidelying Combined With Heat/Cold Hot Pack PT-OP-T Assessment and Plan Start: 08/20/18 08:11 Freq: Status: Active Protocol: Document 10/16/18 08:15 EA (Rec: 10/16/18 09:11 EA [id number]) Physical Therapy Assessment Impairments Impairments Gait Pain Posture Soft Tissue Mobility Strength Goals Four Impairment Impaired walking tolerance Executive Business Coach Goal (LTG) Patient willl ambulaet > 2 miles per day without increase of symptoms LTG Duration 4 wks Three Impairment No HEP in place Group Home Goal (LTG) Patient will exhibit independent HEP LTG Duration 3 wks Two Impairment Impaired left hip strength Group Home Goal (LTG) Patient will increase left hip rotators by 1/2 to 1 grade for functional mobility. LTG Duration 5 wks One Impairment LEFS score of 46/80 Group Home Goal (LTG) Patient will have LEFS score of > 55/80 LTG Duration 4 wks Progress Towards Goals Progress Towards Goals Progressing Toward Goals Progress Comments excellent progress Assessment Summary Assessment Pt demonstrates excellent improvement in all functional mobility and exercises tolerance with no signs of altered mobility or compensatory mobility during isolated LE exercises. Pt would continue to benefit with skilled PT focusing on transitioning to fitness exercises. Additional HEP performed and given today with good carryover. Physical Therapy Plan Frequency and Duration Frequency of Treatment 1x/wk Duration of Treatment 3 wks Plan of Care Start Date 10/16/18 Plan of Care End Date 11/06/18 Therapeutic Interventions Therapeutic Interventions Gait Training Home Exercise Program Joint Mobilizations Manual Therapy Patient/Caregiver Education Self-Care/Home Management Soft Tissue Mobilization Taping Therapeutic Exercises Modalities Cold Pack/Ice Massage Electric Stimulation Hot Packs Ultrasound Next Visit Focus/Plan Next Note Type Treatment Note Next Visit Plan HEP and advnce exercises
--- NOTE | 2018-10-21 10:24 | PT.OTN ---
Current Diagnoses Pain in left hip (10/21/18) Physical Therapy Treatment Note PT-OP-A Visit Information Start: 08/20/18 08:11 Freq: Status: Active Protocol: Document 10/21/18 08:21 EA (Rec: 10/21/18 08:41 EA [id number]) Out-Patient Physical Therapy Visit Information Visit Information Visit Type Treatment Note Visit Start Time 08:15 Visit Stop Time 09:09 Total Visit Minutes 53 Visit Number 12 Number of SLICE PLUG CUTTER OPERATOR HELPER Visits 1 PT-OP-B Current Condition Start: 08/20/18 08:11 Freq: Status: Active Protocol: Document 08/20/18 08:57 EA (Rec: 08/20/18 09:56 EA [id number]) Current Condition History of Current Condition Onset Date Mid May 2018 Current Complaints gait difficulty due to localized left hip pain History of Current Condition Patient reports present condition started on mid- May with no known injury or significant past medical history; states it starts gradually from shifting of cycling exercises daily to walking 3 miles per day. Patient went to her physician due to decreasing mobility as pain tends to increased with increasing distance. Patient received pain meds and home stretch that helps a bit only. Patient denies any loss of function and abnormal sensation. Patient denies any diagnostic imaging performed in the past months. Prior Treatments and Tests None identified Future Testing and Treatments Planned None identified Treatment Goals Patient/Caregiver Goals Patient wants to eliminate pain completely so she can go back to her PLOF (active lifestyle) Prior Functional Status Baseline Function- ADL's Independent Baseline Function- Mobility Independent Baseline Function- Gait Indep with no limitation Baseline Function- Work/School retired Baseline Function- Recreation/Hobbies Cycling exercises 5 times per week or walking more than 2 miles daily. Current Functional Impairments (Reported) Functional Limitations- ADL's Independent Functional Limitations- Mobility/Gait Unable to walk more than a mile due to increasing pain Functional Limitations- Work/School retired Functional Limitations- Recreation/ Unable to perform cycling and Hobbies distance walking due to increasing pain with increasing distance. PT-OP-C Subjective Start: 08/20/18 08:11 Freq: Status: Active Protocol: Document 10/21/18 10:20 EA (Rec: 10/21/18 10:24 EA [id number]) OP-PT Subjective Patient Comments Patient Comments Pt reports left hip is feeling getting better and hip aggravation with HEP. Patient Reported Progress Improving PT-OP-F Manual Assessment Start: 08/20/18 08:11 Freq: Status: Active Protocol: Document 08/20/18 08:57 EA (Rec: 08/20/18 09:56 EA [id number]) Manual Assessments Soft Tissue Assessment Soft Tissue Mobility Assessment Tight left hip ERotators Joint Mobility Assessment Joint Mobility Assessment Normal joint mob PT-OP-G Mobility & Gait Start: 08/20/18 08:11 Freq: Status: Active Protocol: Document 08/20/18 08:57 EA (Rec: 08/20/18 09:56 EA [id number]) OP Gait Assessment Gait Gait Assistance Required: Independent Able to Maintain Weight Bearing Status Yes During Gait Assistive Devices Assistive Device None Factors Limiting Gait Function Factors Limiting Gait Function Pain Comments Gait Comments Incresead left lateral pelvic displacement PT-OP-J Posture/Palpation/Skin Start: 08/20/18 08:11 Freq: Status: Active Protocol: Document 08/20/18 08:57 EA (Rec: 08/20/18 09:56 EA [id number]) Posture Evaluation Position Standing Evaluation View Post/Lat Head/C-Spine Posture Neutral Position T-Spine Posture Neutral Thorax Posture Neutral L-Spine Posture Neutral Shoulder Posture Neutral Pelvis Posture Neutral (L) Iliac Crest Inferior (L) ASIS Inferior Hip Posture (L) Externally Rotated Comments Posture Comments Left LE shorter than right by 2 cm Palpation Assessment Location One Palpation Location Left upper gluteal, hip Erotators, greater trochanter. Palpation Findings Soft Tissue Tightness Tenderness Palpation Details Grade 2/4 tenderness PT-OP-K Range of Motion Start: 08/20/18 08:11 Freq: Status: Active Protocol: Document 08/20/18 09:56 EA (Rec: 08/20/18 09:58 EA [id number]) Hip Goniometric Range of Motion Hip Measured in Degrees Right Hip ROM WFL Yes Left Active Flexion w/Knee Flexed 145 Extension 30 Abduction 45 Internal Rotation 15 External Rotation 30 Hip ROM Limitations Hip ROM Limitations Soft Tissue Tightness Pain Knee Goniometric Range of Motion Knee Measured in Degrees Left Knee ROM WFL Yes PT-OP-L Special Tests Start: 08/20/18 08:11 Freq: Status: Active Protocol: Document 08/20/18 08:57 EA (Rec: 08/20/18 09:56 EA [id number]) Special Tests Hip Special Tests Musa Test Results - Piriformis Test Results sensitive OUSMANE Test Results - Trendelenberg Test Results - Straight Leg Raise Test Results - Cate's Test Test Results - Knee Special Tests Nat's Test Test Results - PT-OP-M Strength Start: 08/20/18 08:11 Freq: Status: Active Protocol: Document 08/20/18 08:57 EA (Rec: 08/20/18 09:56 EA [id number]) Hip Strength Hip Manual Muscle Testing Left Flexion (L2) 5 Normal Extension (S1) 4+ Good+ Abduction 5 Normal Adduction 4+ Good+ External Rotation 4- Good- Internal Rotation 3+ Fair+ Knee Strength Knee Manual Muscle Testing Left Reason Not Measured WFL Ankle/Foot Strength Ankle and Foot Manual Muscle Testing Left Reason Not Measured WFL PT-OP-Q Treatments Start: 08/20/18 08:11 Freq: Status: Active Protocol: Document 10/21/18 08:21 EA (Rec: 10/21/18 08:41 EA [id number]) Cardio Equipment Recumbent Stepper (Sci-Fit) Duration (Minutes) 5 Resistance 3.5 Therapeutic Exercises Supine Exercises 4 Supine Exercise Name PPT with SLR Reps/Minutes x 15 reps x 2 sets each leg 3 Supine Exercise Name Bridging with marching Resistance GTB Reps/Minutes x 10 reps x 2 sets 2 Supine Exercise Name Bridge w/ hip bilate abd Resistance Lv 2 Reps/Minutes x 10 reps x 2 sets 1 Supine Exercise Name Figure of 4 stretch Reps/Minutes x 15SH x 2 Standing Exercises 5 Standing Exercise Name Squat row Side bilateral Equipment Used GTB Reps/Minutes x 10 reps x 2 3 Standing Exercise Name Lunges Reps/Minutes x 12 steps Comments Full lunge: FWD 2 Standing Exercise Name side step squat Resistance GTB Reps/Minutes x 12 feet x 4 lines 1 Standing Exercise Name Squat: ABDUctors activitation Resistance GTB Reps/Minutes x 12 reps x 2 PT-OP-R Modalities Start: 08/20/18 08:11 Freq: Status: Active Protocol: Document 10/21/18 10:24 EA (Rec: 10/21/18 10:24 EA [id number]) Electric Stimulation Electric Stimulation Interferential Current (IFC) Body Location left gluteals/ ERotators Duration (Minutes) 15 Intensity 24 Patient Position Sidelying Combined With Heat/Cold Hot Pack PT-OP-T Assessment and Plan Start: 08/20/18 08:11 Freq: Status: Active Protocol: Document 10/21/18 10:20 EA (Rec: 10/21/18 10:24 EA [id number]) Physical Therapy Assessment Assessment Summary Assessment Pt demonstrates improved exercises form with no discomfort noted during therex . Noted still slight tender over left lateral hip but decreased after used of modalities. Pt continued to progress. Physical Therapy Plan Next Visit Focus/Plan Next Note Type Treatment Note Next Visit Plan Discharge next visit to HEP or fitness exercises.
--- NOTE | 2018-10-23 12:12 | PT.OTN ---
Current Diagnoses Pain in left hip (10/23/18) Physical Therapy Treatment Note PT-OP-A Visit Information Start: 08/20/18 08:11 Freq: Status: Active Protocol: Document 10/23/18 09:42 EA (Rec: 10/23/18 09:47 EA [id number]) Out-Patient Physical Therapy Visit Information Visit Information Visit Type Treatment Note Visit Note discharge to this date Visit Start Time 08:15 Visit Stop Time 09:00 Total Visit Minutes 45 Visit Number 13 Number of RESEARCH PHYSIOLOGIST Visits 1 PT-OP-B Current Condition Start: 08/20/18 08:11 Freq: Status: Active Protocol: Document 08/20/18 08:57 EA (Rec: 08/20/18 09:56 EA [id number]) Current Condition History of Current Condition Onset Date Mid May 2018 Current Complaints gait difficulty due to localized left hip pain History of Current Condition Patient reports present condition started on mid- May with no known injury or significant past medical history; states it starts gradually from shifting of cycling exercises daily to walking 3 miles per day. Patient went to her physician due to decreasing mobility as pain tends to increased with increasing distance. Patient received pain meds and home stretch that helps a bit only. Patient denies any loss of function and abnormal sensation. Patient denies any diagnostic imaging performed in the past months. Prior Treatments and Tests None identified Future Testing and Treatments Planned None identified Treatment Goals Patient/Caregiver Goals Patient wants to eliminate pain completely so she can go back to her PLOF (active lifestyle) Prior Functional Status Baseline Function- ADL's Independent Baseline Function- Mobility Independent Baseline Function- Gait Indep with no limitation Baseline Function- Work/School retired Baseline Function- Recreation/Hobbies Cycling exercises 5 times per week or walking more than 2 miles daily. Current Functional Impairments (Reported) Functional Limitations- ADL's Independent Functional Limitations- Mobility/Gait Unable to walk more than a mile due to increasing pain Functional Limitations- Work/School retired Functional Limitations- Recreation/ Unable to perform cycling and Hobbies distance walking due to increasing pain with increasing distance. PT-OP-C Subjective Start: 08/20/18 08:11 Freq: Status: Active Protocol: Document 10/23/18 09:42 EA (Rec: 10/23/18 09:47 EA [id number]) OP-PT Subjective Patient Comments Patient Comments Pt reports she is now able to climb stair easily without increase of symptoms; feel that her quads are much stronger. Pt would like to know advance exercises she perform after discharge to PT. PT-OP-F Manual Assessment Start: 08/20/18 08:11 Freq: Status: Active Protocol: Document 08/20/18 08:57 EA (Rec: 08/20/18 09:56 EA [id number]) Manual Assessments Soft Tissue Assessment Soft Tissue Mobility Assessment Tight left hip ERotators Joint Mobility Assessment Joint Mobility Assessment Normal joint mob PT-OP-G Mobility & Gait Start: 08/20/18 08:11 Freq: Status: Active Protocol: Document 08/20/18 08:57 EA (Rec: 08/20/18 09:56 EA [id number]) OP Gait Assessment Gait Gait Assistance Required: Independent Able to Maintain Weight Bearing Status Yes During Gait Assistive Devices Assistive Device None Factors Limiting Gait Function Factors Limiting Gait Function Pain Comments Gait Comments Incresead left lateral pelvic displacement PT-OP-J Posture/Palpation/Skin Start: 08/20/18 08:11 Freq: Status: Active Protocol: Document 08/20/18 08:57 EA (Rec: 08/20/18 09:56 EA [id number]) Posture Evaluation Position Standing Evaluation View Post/Lat Head/C-Spine Posture Neutral Position T-Spine Posture Neutral Thorax Posture Neutral L-Spine Posture Neutral Shoulder Posture Neutral Pelvis Posture Neutral (L) Iliac Crest Inferior (L) ASIS Inferior Hip Posture (L) Externally Rotated Comments Posture Comments Left LE shorter than right by 2 cm Palpation Assessment Location One Palpation Location Left upper gluteal, hip Erotators, greater trochanter. Palpation Findings Soft Tissue Tightness Tenderness Palpation Details Grade 2/4 tenderness PT-OP-K Range of Motion Start: 08/20/18 08:11 Freq: Status: Active Protocol: Document 08/20/18 09:56 EA (Rec: 08/20/18 09:58 EA [id number]) Hip Goniometric Range of Motion Hip Measured in Degrees Right Hip ROM WFL Yes Left Active Flexion w/Knee Flexed 145 Extension 30 Abduction 45 Internal Rotation 15 External Rotation 30 Hip ROM Limitations Hip ROM Limitations Soft Tissue Tightness Pain Knee Goniometric Range of Motion Knee Measured in Degrees Left Knee ROM WFL Yes PT-OP-L Special Tests Start: 08/20/18 08:11 Freq: Status: Active Protocol: Document 08/20/18 08:57 EA (Rec: 08/20/18 09:56 EA [id number]) Special Tests Hip Special Tests Musa Test Results - Piriformis Test Results sensitive OUSMANE Test Results - Trendelenberg Test Results - Straight Leg Raise Test Results - Cate's Test Test Results - Knee Special Tests Nat's Test Test Results - PT-OP-M Strength Start: 08/20/18 08:11 Freq: Status: Active Protocol: Document 08/20/18 08:57 EA (Rec: 08/20/18 09:56 EA [id number]) Hip Strength Hip Manual Muscle Testing Left Flexion (L2) 5 Normal Extension (S1) 4+ Good+ Abduction 5 Normal Adduction 4+ Good+ External Rotation 4- Good- Internal Rotation 3+ Fair+ Knee Strength Knee Manual Muscle Testing Left Reason Not Measured WFL Ankle/Foot Strength Ankle and Foot Manual Muscle Testing Left Reason Not Measured WFL PT-OP-Q Treatments Start: 08/20/18 08:11 Freq: Status: Active Protocol: Document 10/23/18 09:42 EA (Rec: 10/23/18 09:47 EA [id number]) Cardio Equipment Recumbent Bicycle Duration (Minutes) 5 Resistance 6 Gym Equipment Cable Column (Body Solid) Rows Details cable sit to stand Resistance x 15 reps at 10# Reps/Time HEP comp Shuttle Recovery Bilateral Squats Resistance 5-6 cords Reps/Time 15 reps x 2 Therapeutic Exercises Supine Exercises 4 Supine Exercise Name PPT with SLR Reps/Minutes x 15 reps x 2 sets each leg Comments HEP comp 3 Supine Exercise Name Bridging with marching Resistance GTB Reps/Minutes x 10 reps x 2 sets Comments HEP comp 2 Supine Exercise Name Bridge w/ hip bilate abd Resistance Lv 2 Reps/Minutes x 10 reps x 2 sets Comments HEP comp Standing Exercises 5 Standing Exercise Name Squat row Side bilateral Equipment Used GTB Reps/Minutes x 10 reps x 2 Comments HEP comp 3 Standing Exercise Name Lunges Reps/Minutes x 12 steps Comments HEP comp 2 Standing Exercise Name side step squat Resistance GTB Reps/Minutes x 12 feet x 4 lines Comments HEP comp 1 Standing Exercise Name Squat: ABDUctors activitation Resistance GTB Reps/Minutes x 12 reps x 2 Comments 8 lbs on each hands Self-Care/Home Management Treatment Education Patient Education Home Exercise Program Joint Protection Pain Management Posture Other Education Discussed exercises safety and benefits. PT-OP-R Modalities Start: 08/20/18 08:11 Freq: Status: Active Protocol: Document 10/21/18 10:24 EA (Rec: 10/21/18 10:24 EA [id number]) Electric Stimulation Electric Stimulation Interferential Current (IFC) Body Location left gluteals/ ERotators Duration (Minutes) 15 Intensity 24 Patient Position Sidelying Combined With Heat/Cold Hot Pack PT-OP-T Assessment and Plan Start: 08/20/18 08:11 Freq: Status: Active Protocol: Document 10/23/18 10:26 EA (Rec: 10/23/18 10:27 EA [id number]) Physical Therapy Assessment Assessment Summary Assessment Patient exhibits good understanding with all HEP safety and progression. Patient is discharge today upon reaching functional goals . Physical Therapy Plan Discharge Physical Therapy Discharge Reasons Goals Met
== END 2018-10-24 12:24 ==
LOC: PHYS 08:15
PROVIDERS: Family Provider Family Medicine; PCP Family Medicine; Visit Provider Registered Nurse
DX: M25.552 Pain in left hip (principal)
CPT/HCPCS: 97014; 97032; 97035; 97110; 97140; 97161; 97535; G0283

== ENCOUNTER → 2020-01-06 11:26 | Outpatient (CLI) | payer MEDICARE, OTHER, SELFPAY ==
--- NOTE | 2020-01-06 | DI.MG.S_ITS ---
BILATERAL DIGITAL SCREENING MAMMOGRAM 3D/2D WITH CAD: 01/06/2020 CLINICAL: Routine screening. Comparison is made to exams dated: 02/26/2018 mammogram, 01/11/2017 mammogram, and 09/21/2015 mammogram - [facility]. There are scattered fibroglandular elements in both breasts. Current study was also evaluated with a Computer Aided Detection (CAD) system. No significant masses, calcifications, or other findings are seen in either breast. There has been no significant interval change. IMPRESSION: NEGATIVE There is no mammographic evidence of malignancy. A 1 year screening mammogram is recommended. This exam was interpreted at Station ID: [id number]. NOTE: For mammograms, a report in lay terms will be sent to the patient. Approximately 15% of breast malignancies will not be visualized mammographically. In the management of a palpable breast mass, a negative mammogram must not discourage biopsy of a clinically suspicious lesion. Electronically Signed By: Mary mo/danya:01/06/2020 17:30:21 copy to: Ania Aranda letter sent: Normal Exam ACR BI-RADS Category 1: Negative 3341F
== END ==
PROVIDERS: Family Provider Family Medicine; PCP Family Medicine; Referring Provider Family Medicine; Visit Provider Family Medicine
DX: Z12.31 Encounter for screening mammogram for malignant neoplasm of breast (principal)
CPT/HCPCS: 77063; 77067

== ENCOUNTER → 2020-07-28 07:31 | Outpatient (CLI) | payer MEDICARE, OTHER, SELFPAY ==
--- NOTE | 2020-07-28 07:33 | DI.RAD.S_ITS ---
PROCEDURE: XR ANKLE RT MIN 3V INDICATIONS: non traumatic right medial to lateral malleolar pain TECHNIQUE: 3 views of the ankle were acquired. COMPARISON: [facility], CR, FOOT COMP MIN 3VW (RT), 09/09/2014, 12:02. FINDINGS: Bones: No fractures or dislocations. Ankle mortise is normally aligned. No suspicious bony lesions. Small plantar calcaneal spur. Soft tissues: No tibiotalar joint effusion. Achilles tendon appears normal. IMPRESSION: No definite radiographic abnormality. If pain persists with conservative management, consider cross sectional imaging such as CT or MRI for further assessment. Dictated by: Kamaljit COLIN Interpreted: Darci Hilton MD on 07/28/2020 at 9:04 Approved by: Darci Hilton M.D. on 07/28/2020 at 11:19
== END ==
PROVIDERS: Family Provider Family Medicine; PCP Family Medicine; Referring Provider Family Medicine; Visit Provider Nurse Practitioner Family
DX: M25.571 Pain in right ankle and joints of right foot (principal)
CPT/HCPCS: 73610

== ENCOUNTER → 2020-08-16 09:12 | Outpatient (CLI) | payer MEDICARE, OTHER, SELFPAY ==
--- NOTE | 2020-08-16 09:15 | DI.RAD.S_ITS ---
PROCEDURE: XR FOOT RT MIN 3V INDICATIONS: right foot pain TECHNIQUE: 3 views of the foot were acquired. COMPARISON: [facility], CR, XR ANKLE RT MIN 3V, 07/28/2020, 7:37. FINDINGS: Bones: No fractures or dislocations. No suspicious bony lesions. Hallux valgus deformity is present. Moderate to severe DIP and PIP narrowing, most notable at the first MTP joint. Mild midfoot degenerative change. Soft tissues: No tibiotalar joint effusion. Achilles tendon appears normal. IMPRESSION: Degenerative changes as above. Dictated by: Terri Sanchez M.D. on 08/16/2020 at 10:34 Approved by: Terri Sanchez M.D. on 08/16/2020 at 10:37
== END ==
PROVIDERS: Family Provider Family Medicine; PCP Family Medicine; Referring Provider Family Medicine; Visit Provider Family Medicine
DX: M79.671 Pain in right foot (principal); M20.11 Hallux valgus (acquired), right foot
CPT/HCPCS: 73630

== ENCOUNTER → 2020-08-22 07:21 | Outpatient (CLI) | payer MEDICARE, OTHER, SELFPAY ==
[2020-08-22 08:51] LABS: Alanine Aminotransferase 16 IU/L (<35); Albumin 4.5 g/dL (3.5-5.0); Albumin Globulin Ratio 1.5 (1.0-2.8); Alkaline Phosphatase 99 U/L (38-126); Aspartate Aminotransferase 26 IU/L (14-36); BUN Creatinine Ratio 21.2 (6-22); Bilirubin Total 0.4 mg/dL (0.2-1.3); Blood Urea Nitrogen 18 mg/dL (7-17); Calcium 9.9 mg/dL (8.4-10.2); Carbon Dioxide 30 mmol/L (22-32); Chloride 105 mmol/L (98-107); Cholesterol 266 mg/dL (140-199); Estimated Glomerular Filt Rate > 60.0 mL/min (>60); Globulin 3.1 g/dL (1.7-4.1); Glucose 96 mg/dL (80-110); HDL Cholesterol 58 mg/dL (40-60); HEMOLYSIS < 15 (0-50); LDL Cholesterol Calculated 184 mg/dL (<100); Potassium 4.2 mmol/L (3.4-5.1); Sodium 138 mmol/L (137-145); Total Protein 7.6 g/dL (6.3-8.2); Triglycerides 122 mg/dL (35-150)
[2020-08-22 09:16] LABS: Vitamin D 25 Hydroxy (D3) 51.8 ng/mL (30.0-100.0)
== END ==
PROVIDERS: Family Provider Family Medicine; PCP Family Medicine; Referring Provider Family Medicine; Visit Provider Family Medicine
DX: Z13.220 Encounter for screening for lipoid disorders (principal); M85.89 Other specified disorders of bone density and structure, multiple sites; Z78.0 Asymptomatic menopausal state; Z87.891 Personal history of nicotine dependence
CPT/HCPCS: 36415; 77080; 80053; 80061; 82306

== ENCOUNTER → 2021-02-28 15:19 | Outpatient (CLI) | payer MEDICARE, OTHER, SELFPAY ==
--- NOTE | 2021-02-28 15:21 | DI.MG.S_ITS ---
BILATERAL DIGITAL SCREENING MAMMOGRAM 3D/2D WITH CAD: 02/28/2021 CLINICAL: Routine screening. Comparison is made to exams dated: 01/06/2020 mammogram, 03/20/2018 mammogram, 02/26/2018 mammogram, 01/11/2017 mammogram, and 09/21/2015 mammogram - [facility]. There are scattered fibroglandular elements in both breasts. Current study was also evaluated with a Computer Aided Detection (CAD) system. No significant masses, calcifications, or other findings are seen in either breast. There has been no significant interval change. IMPRESSION: NEGATIVE There is no mammographic evidence of malignancy. A 1 year screening mammogram is recommended. This exam was interpreted at Station ID: [id number]. NOTE: For mammograms, a report in lay terms will be sent to the patient. Approximately 15% of breast malignancies will not be visualized mammographically. In the management of a palpable breast mass, a negative mammogram must not discourage biopsy of a clinically suspicious lesion. Electronically Signed By: Darci samuel/danya:02/28/2021 16:03:32 letter sent: Normal Exam ACR BI-RADS Category 1: Negative 3341F
== END ==
PROVIDERS: Family Provider Family Medicine; PCP Family Medicine; Referring Provider Family Medicine; Visit Provider Family Medicine
DX: Z12.31 Encounter for screening mammogram for malignant neoplasm of breast (principal)
CPT/HCPCS: 77063; 77067

== ENCOUNTER → 2021-05-22 09:46 | Outpatient (CLI) | payer MEDICARE, OTHER, SELFPAY ==
--- NOTE | 2021-05-22 09:47 | DI.US.S_ITS ---
PROCEDURE: US PELVIC COMPLETE INDICATIONS: VAGINAL BLEEDING TECHNIQUE: Real-time scanning was performed of the pelvic organs, with image documentation. Additional endovaginal scanning was necessary due to incomplete visualization of the adnexal and endometrial structures by transabdominal scanning. COMPARISON: None. FINDINGS: Uterus: Uterus is anteverted and normal in size at 5.0 x 2.1 x 3.9 cm. The myometrium is homogeneous. The endometrium measures 1.8 mm combined thickness. No uterine masses Ovaries: The right ovary is not seen. The left ovary measures 2.9 x 1.9 x 2.3 cm 18 mm simple left ovarian cyst is present. No adnexal masses are seen. Other: No pathologic free abdominal or pelvic fluid. IMPRESSION: Negative examination. We strive to produce accurate, complete, and clear reports of imaging services. To assist us in improving patient care, this report was composed using standard report templates and voice recognition software. Therefore, it may contain abnormal punctuation, insertions and/or omissions. Occasional wrong-word or sound-alike substitutions may occur. Though we review the report and make efforts to correct it, we do recommend that the report be read carefully in proper context to recognize any text inaccuracies. Dictated by: Lilian Warner M.D. on 05/22/2021 at 11:24 Approved by: Lilian Warner M.D. on 05/22/2021 at 11:25
== END ==
PROVIDERS: Family Provider Family Medicine; PCP Family Medicine; Referring Provider Family Medicine; Visit Provider Family Medicine
DX: N93.9 Abnormal uterine and vaginal bleeding, unspecified (principal); N83.292 Other ovarian cyst, left side
CPT/HCPCS: 76830; 76856

== ENCOUNTER → 2022-03-13 15:27 | Outpatient (CLI) | payer MEDICARE, OTHER, SELFPAY ==
--- NOTE | 2022-03-13 15:28 | DI.MG.S_ITS ---
BILATERAL DIGITAL SCREENING MAMMOGRAM 3D/2D WITH CAD: 03/13/2022 CLINICAL: Routine screening. Comparison is made to exams dated: 02/28/2021 mammogram, 01/06/2020 mammogram, 03/20/2018 mammogram, 02/26/2018 mammogram, and 01/11/2017 mammogram - [facility]. There are scattered areas of fibroglandular density in both breasts (category b / 25%-50% glandular tissue). Current study was also evaluated with a Computer Aided Detection (CAD) system. No significant masses, calcifications, or other findings are seen in either breast. There has been no significant interval change. IMPRESSION: NEGATIVE There is no mammographic evidence of malignancy. A 1 year screening mammogram is recommended. Based on the Tyrer Cuzick model (a risk assessment model) the patient's lifetime risk is 6.6% and her 10 year risk is 3.5%. According to the ACR, ACS, and NCCN guidelines, an annual breast MRI exam along with mammogram is recommended if the patient's lifetime risk is 20% or greater. This exam was interpreted at Station ID: [id number]. NOTE: For mammograms, a report in lay terms will be sent to the patient. Approximately 15% of breast malignancies will not be visualized mammographically. In the management of a palpable breast mass, a negative mammogram must not discourage biopsy of a clinically suspicious lesion. Electronically Signed By: Darci samuel/danya:03/14/2022 12:27:15 letter sent: Normal Exam ACR BI-RADS Category 1: Negative 3341F
== END ==
PROVIDERS: Family Provider Family Medicine; PCP Family Medicine; Referring Provider Family Medicine; Visit Provider Family Medicine
DX: Z12.31 Encounter for screening mammogram for malignant neoplasm of breast (principal)
CPT/HCPCS: 77063; 77067

== ENCOUNTER → 2022-12-12 11:57 | Outpatient (CLI) | payer MEDICARE, OTHER, SELFPAY ==
--- NOTE | 2022-12-12 11:59 | DI.RAD.S_ITS ---
PROCEDURE: XR FOOT RT MIN 3V INDICATIONS: right lat pain dorsum prox 4th MCP no inj/walks lot TECHNIQUE: 3 views of the foot were acquired. COMPARISON: [facility], CR, XR FOOT RT MIN 3V, 08/16/2020, 10:24. FINDINGS: Bones: Minimally displaced transverse fracture involving the base of the right 5th metatarsal. Overlying soft tissue edema. Remainder of the visualized osseous structures appear intact. Moderate hallux valgus angulation of the right great toe with associated bunion and degenerative changes at the 1st metatarsophalangeal joint. Soft tissues: No tibiotalar joint effusion. Achilles tendon appears normal. IMPRESSION: Minimally displaced transverse fracture at the base of the right 5th metatarsal. 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 Dictated by: Justen Tong M.D. on 12/12/2022 at 12:42 Approved by: Justen Tong M.D. on 12/12/2022 at 12:43
== END ==
PROVIDERS: Family Provider Family Medicine; PCP Family Medicine; Referring Provider Student in an Organized Health Care Education/Training Program; Visit Provider Student in an Organized Health Care Education/Training Program
DX: S92.354A Nondisplaced fracture of fifth metatarsal bone, right foot, initial encounter for closed fracture (principal); M20.11 Hallux valgus (acquired), right foot; M21.611 Bunion of right foot; M19.071 Primary osteoarthritis, right ankle and foot; M79.671 Pain in right foot; X58.XXXA Exposure to other specified factors, initial encounter
CPT/HCPCS: 73630

== ENCOUNTER → 2023-03-28 06:56 | Outpatient (CLI) | payer MEDICARE, OTHER, SELFPAY ==
[2023-03-28 08:04] LABS: Alanine Aminotransferase 17 IU/L (<35); Albumin 4.4 g/dL (3.5-5.0); Albumin Globulin Ratio 1.6 (1.0-2.8); Alkaline Phosphatase 104 U/L (38-126); Aspartate Aminotransferase 23 IU/L (14-36); BUN Creatinine Ratio 23.2 (6-22); Bilirubin Total 0.6 mg/dL (0.2-1.3); Blood Urea Nitrogen 19 mg/dL (7-17); Calcium 10.1 mg/dL (8.4-10.2); Carbon Dioxide 28 mmol/L (22-32); Chloride 104 mmol/L (98-107); Cholesterol 248 mg/dL (140-199); Estimated Glomerular Filt Rate > 60 mL/min (>60); Globulin 2.7 g/dL (1.7-4.1); Glucose 93 mg/dL (80-110); HDL Cholesterol 65 mg/dL (40-60); HEMOLYSIS < 15 (0-50); LDL Cholesterol Calculated 160 mg/dL (<100); Sodium 138 mmol/L (137-145); Total Protein 7.1 g/dL (6.3-8.2); Triglycerides 115 mg/dL (35-150)
== END ==
PROVIDERS: Family Provider Family Medicine; PCP Family Medicine; Referring Provider Family Medicine; Visit Provider Family Medicine
DX: E78.5 Hyperlipidemia, unspecified (principal); Z00.00 Encounter for general adult medical examination without abnormal findings
CPT/HCPCS: 36415; 80053; 80061

== ENCOUNTER → 2023-05-31 15:21 | Outpatient (CLI) | payer MEDICARE, OTHER, SELFPAY ==
--- NOTE | 2023-05-31 | DI.MG.S_ITS ---
BILATERAL DIGITAL SCREENING MAMMOGRAM 3D/2D WITH CAD: 05/31/2023 CLINICAL: Routine screening. Comparison is made to exams dated: 03/13/2022 mammogram, 02/28/2021 mammogram, and 01/06/2020 mammogram - [facility]. There are scattered areas of fibroglandular density in both breasts (category b / 25%-50% glandular tissue). Current study was also evaluated with a Computer Aided Detection (CAD) system. No significant masses, calcifications, or other findings are seen in either breast. There has been no significant interval change. IMPRESSION: NEGATIVE There is no mammographic evidence of malignancy. A 1 year screening mammogram is recommended. Based on the Tyrer Cuzick model (a risk assessment model) the patient's lifetime risk is 6.2% and her 10 year risk is 3.5%. According to the ACR, ACS, and NCCN guidelines, an annual breast MRI exam along with mammogram is recommended if the patient's lifetime risk is 20% or greater. This exam was interpreted at Station ID: [id number]. NOTE: For mammograms, a report in lay terms will be sent to the patient. Approximately 15% of breast malignancies will not be visualized mammographically. In the management of a palpable breast mass, a negative mammogram must not discourage biopsy of a clinically suspicious lesion. Electronically Signed By: Magdalena Chaparro M.D., PH.D zoraida/danya:05/31/2023 23:48:14 letter sent: Normal Exam ACR BI-RADS Category 1: Negative 3341F
== END ==
PROVIDERS: Family Provider Family Medicine; PCP Family Medicine; Referring Provider Family Medicine; Visit Provider Family Medicine
DX: Z12.31 Encounter for screening mammogram for malignant neoplasm of breast (principal)
CPT/HCPCS: 77063; 77067

== ENCOUNTER → 2024-04-01 09:57 | Outpatient (CLI) | payer MEDICARE, OTHER, SELFPAY ==
[2024-04-01 10:46] LABS: Add Manual Diff / Slide Review NO; Basophils Absolute Auto 100 /uL (0-100); Eosinophils Absolute Auto 100 /uL (0-450); Eosinophils Percent Auto 2.6 % (2-4); Hematocrit 38.3 % (36-46); Hemoglobin 12.9 g/dL (12.0-16.0); Lymphocytes Absolute Auto 1800 /uL (1100-4500); Lymphocytes Percent Auto 37.9 % (25-40); Mean Corpuscular HGB Conc 33.6 % (30-36); Mean Corpuscular Volume 89.4 fL (80-100); Monocytes Absolute Auto 400 /uL (0-900); Monocytes Percent Auto 7.8 % (3-14); Neutrophils Absolute Auto 2300 /uL (1500-7000); Neutrophils Percent Auto 49.7 % (50-75); Platelet Count 210 X10^3/uL (150-400); Red Blood Cell Count 4.29 X10^6/uL (4.0-5.2); Red Cell Distribution Width 13.1 % (11.6-14.8); White Blood Cell Count 4.6 X10^3/uL (4.5-11.0)
[2024-04-01 11:11] LABS: Alanine Aminotransferase 16 IU/L (<35); Albumin 4.4 g/dL (3.5-5.0); Albumin Globulin Ratio 1.6 (1.0-2.8); Alkaline Phosphatase 111 U/L (38-126); Aspartate Aminotransferase 27 IU/L (14-36); BUN Creatinine Ratio 29.3 (6-22); Bilirubin Total 0.5 mg/dL (0.2-1.3); Blood Urea Nitrogen 24 mg/dL (7-17); Carbon Dioxide 27 mmol/L (22-32); Chloride 103 mmol/L (98-107); Cholesterol 255 mg/dL (140-199); Estimated Glomerular Filt Rate > 60 mL/min (>60); Globulin 2.8 g/dL (1.7-4.1); Glucose 101 mg/dL (80-110); HDL Cholesterol 63 mg/dL (40-60); HEMOLYSIS < 15 (0-50); LDL Cholesterol Calculated 159 mg/dL (<100); Potassium 4.3 mmol/L (3.4-5.1); Sodium 136 mmol/L (137-145); Total Protein 7.2 g/dL (6.3-8.2); Triglycerides 166 mg/dL (35-150)
[2024-04-01 11:35] LABS: Thyroid Stimulating Hormone 1.61 uIU/mL (0.47-4.68)
== END ==
PROVIDERS: Family Provider Family Medicine; PCP Family Medicine; Referring Provider Family Medicine; Visit Provider Family Medicine
DX: E78.5 Hyperlipidemia, unspecified (principal); M85.80 Other specified disorders of bone density and structure, unspecified site; Z79.899 Other long term (current) drug therapy
CPT/HCPCS: 36415; 80053; 80061; 84443; 85025

== ENCOUNTER → 2024-06-09 11:37 | Outpatient (CLI) | payer MEDICARE, OTHER, SELFPAY ==
--- NOTE | 2024-06-09 11:38 | DI.MG.S_ITS ---
BILATERAL DIGITAL SCREENING MAMMOGRAM 3D/2D WITH CAD: 06/09/2024 CLINICAL: Routine screening. Comparison is made to exams dated: 05/31/2023 mammogram, 03/13/2022 mammogram, and 02/28/2021 mammogram - [facility]. There are scattered areas of fibroglandular density (category b / 25%-50% glandular tissue). Current study was also evaluated with a Computer Aided Detection (CAD) system. No significant masses, calcifications, or other findings are seen in either breast. There has been no significant interval change. IMPRESSION: NEGATIVE There is no mammographic evidence of malignancy. A 1 year screening mammogram is recommended. Based on the Tyrer Cuzick model (a risk assessment model) the patient's lifetime risk is 5.9% and her 10 year risk is 3.5%. According to the ACR, ACS, and NCCN guidelines, an annual breast MRI exam along with mammogram is recommended if the patient's lifetime risk is 20% or greater. This exam was interpreted at Station ID: [id number]. NOTE: For mammograms, a report in lay terms will be sent to the patient. Approximately 15% of breast malignancies will not be visualized mammographically. In the management of a palpable breast mass, a negative mammogram must not discourage biopsy of a clinically suspicious lesion. Electronically Signed By: Bubba adkins/danya:06/09/2024 15:30:51 letter sent: Normal Exam ACR BI-RADS Category 1: Negative
== END ==
PROVIDERS: Family Provider Family Medicine; PCP Family Medicine; Referring Provider Family Medicine; Visit Provider Family Medicine
DX: Z12.31 Encounter for screening mammogram for malignant neoplasm of breast (principal)
CPT/HCPCS: 77063; 77067

== ENCOUNTER → 2024-09-07 12:05 | Outpatient (CLI) | payer MEDICARE, OTHER, SELFPAY ==
--- NOTE | 2024-09-07 12:07 | DI.RAD.S_ITS ---
PROCEDURE: XR DEXA AXIAL SKELETON INDICATIONS: screening COMPARISON: [facility], [facility], XR DEXA AXIAL SKELETON, 08/22/2020, 10:33. FINDINGS: Lumbar Spine (L1, L3, L4): Bone mineral density 0.95 g/cm2, T score -1, previously -0.5. L1 T-score of note is-2.2. Left Femoral Neck: Bone mineral density 0.76 g/cm2, T score -0.8, previously -0.7. Left Hip: Bone mineral density 0.89 g/cm2, T score -0.4, previously -0.2. Fracture Risk Calculation (when applicable): Not applicable (T score greater or equal to -1.0 to: NORMAL) (T score from -1.1 to -2.4: OSTEOPENIA) (T score less than or equal to -2.5: OSTEOPOROSIS) IMPRESSION: Bone mineral density is at the lower limit of normal for the lumbar spine overall and left femoral neck. Of note, the T-score at L1 is low at -2.2. Mild sclerosis at L3-L4 likely artifactually increases the overall bone mineral density. T-score in the lumbar spine overall is decreased from prior imaging. Follow-up guidelines as follows: Osteoporosis: Consider a repeat DEXA and Vertebral Fracture Assessment (VFA) exam in 2 years or sooner if medically necessary, to reassess this patient's status. Osteopenia: Consider a repeat DEXA in 2-3 years to reassess this patient's status, or if there is a new clinical indication. Normal: Consider a repeat DEXA in 5 years or sooner, or if there is a new clinical indication. All treatment decisions require clinical judgment and consideration of individual patient factors, including patient preferences, comorbidities, previous drug use, risk factors not captured in the FRAX model (e.g., frailty, falls, vitamin D deficiency, increased bone turnover, interval significant decline in bone density ) and possible under- or over-estimation of fracture risk by FRAX. In addition, the NOF Guide recommends that FDA-approved medical therapies be considered in postmenopausal women and men age >= 50 years with a: * Hip or vertebral (clinical or morphometric) fracture * T-score of <=-2.5 at the spine or hip * Ten-year fracture probability by FRAX of >= 3% for hip fracture or >=20% for major osteoporotic fracture. Dictated by: Xavi Atkins M.D. on 09/07/2024 at 17:14 Approved by: Xavi Atkins M.D. on 09/07/2024 at 17:16
== END ==
PROVIDERS: Family Provider Family Medicine; PCP Family Medicine; Referring Provider Family Medicine; Visit Provider Family Medicine
DX: Z00.00 Encounter for general adult medical examination without abnormal findings (principal); M85.89 Other specified disorders of bone density and structure, multiple sites; E78.5 Hyperlipidemia, unspecified; Z11.59 Encounter for screening for other viral diseases
CPT/HCPCS: 77080

== ENCOUNTER → 2024-12-01 14:34 | Outpatient (CLI) | payer MEDICARE, OTHER, SELFPAY | LOC: LAB 14:36 | PROVIDERS: PCP Family Medicine; Visit Provider Physician Assistant | DX: N89.8 Other specified noninflammatory disorders of vagina (principal) | CPT/HCPCS: 87210 ==

== ENCOUNTER → 2025-04-30 08:15 | Outpatient (CLI) | payer MEDICARE, OTHER, SELFPAY ==
[2025-04-30 10:36] LABS: Alanine Aminotransferase 34 IU/L (<35); Albumin 4.6 g/dL (3.5-5.0); Albumin Globulin Ratio 1.7 (1.0-2.8); Alkaline Phosphatase 99 U/L (38-126); Blood Urea Nitrogen 21 mg/dL (7-17); Carbon Dioxide 27 mmol/L (22-32); Chloride 103 mmol/L (98-107); Cholesterol 167 mg/dL (140-199); Estimated Glomerular Filt Rate > 60 mL/min (>60); Globulin 2.7 g/dL (1.7-4.1); HEMOLYSIS < 15 (0-50); Total Protein 7.3 g/dL (6.3-8.2); Triglycerides 104 mg/dL (35-150)
[2025-04-30 10:41] LABS: Calcium 9.6 mg/dL (8.4-10.2); Glucose 90 mg/dL (70-99); HDL Cholesterol 81 mg/dL (40-60); Potassium 4.5 mmol/L (3.4-5.1); Sodium 137 mmol/L (137-145)
[2025-04-30 11:26] LABS: Hep C Virus Ab w/Reflex Quant NEGATIVE s/c (NEGATIVE)
== END ==
PROVIDERS: PCP Family Medicine; Referring Provider Family Medicine; Visit Provider Family Medicine
DX: Z00.00 Encounter for general adult medical examination without abnormal findings (principal); Z11.59 Encounter for screening for other viral diseases; E78.5 Hyperlipidemia, unspecified; M85.89 Other specified disorders of bone density and structure, multiple sites
CPT/HCPCS: 36415; 80053; 80061; 86803

== ENCOUNTER → 2025-05-19 09:49 | Outpatient (CLI) | payer MEDICARE, OTHER, SELFPAY ==
--- NOTE | 2025-05-19 09:50 | DI.NM.S_ITS ---
PROCEDURE: NM EXERCISE TREADMILL NON NUC COMPARISON: None. INDICATIONS: Dyspnea on exertion, chest tightness, dyslipidemia FINDINGS: Rest ECG sinus rhythm 71 bpm. Sudhir protocol 9:15, maximum heart rate 180 bpm (120% peak predicted), peak blood pressure 192/97, 10.1 METS, NAKUL -58%. Exercise ECG sinus tachycardia, no ST segment changes, occasional PVCs intermittently in a bigeminal pattern, rare PACs. The patient did not report exercise-induced chest discomfort. IMPRESSION: Low risk study. No evidence of exercise-induced ischemia on ECG. There there is evidence of occasional exercise-induced PVCs that occurred in a bigeminal pattern. Normal hemodynamic response. Excellent exercise capacity. Dictated by: Angeles Jimenes D.O. on 05/19/2025 at 17:20 Approved by: Angeles Jimenes D.O. on 05/19/2025 at 17:24
== END ==
LOC: NUCM 09:50
PROVIDERS: PCP Family Medicine; Referring Provider Family Medicine; Visit Provider Family Medicine
DX: R06.09 Other forms of dyspnea (principal); E78.5 Hyperlipidemia, unspecified; I49.3 Ventricular premature depolarization
CPT/HCPCS: 93017

== ENCOUNTER → 2025-06-19 10:38 | Outpatient (CLI) | payer MEDICARE, OTHER, SELFPAY ==
--- NOTE | 2025-06-19 10:39 | DI.MG.S_ITS ---
MM screening mammo BI: 06/19/2025. BI-RADS: 1 CLINICAL: 69-year old female for bilateral screening mammogram. Tyrer-Cuzick lifetime risk of 5.0%. No personal or first-degree family history of breast cancer. PRIOR EXAMS 06/09/2024, 05/31/2023, 03/13/2022, 02/28/2021. MAMMOGRAPHY TECHNIQUE: 2D and 3D (tomosynthesis) digital mammographic views obtained, with additional images as needed for full coverage. Current study was also evaluated with a Computer Aided Detection (CAD) system. DENSITY B. There are scattered areas of fibroglandular density. MAMMOGRAPHY FINDINGS Bilateral: No suspicious mass, asymmetry, microcalcification, or other abnormality seen. IMPRESSION: * No evidence of malignancy. RECOMMENDATIONS Bilateral * Annual screening mammography. OVERALL ASSESSMENT CATEGORY BI-RADS-1: Negative. The [employer] recommends annual screening mammography beginning at age 40 for women with average risk of breast cancer. ELECTRONICALLY SIGNED: Leeanna Nava M.D. on 06/21/2025 at 08:33:03 AM PT Interpreting Station ID: [id number]
== END ==
PROVIDERS: PCP Family Medicine; Referring Provider Family Medicine; Visit Provider Family Medicine
DX: Z12.31 Encounter for screening mammogram for malignant neoplasm of breast (principal)
CPT/HCPCS: 77063; 77067